=== PATIENT | male | born 1940 | race Caucasian/White ===

== ENCOUNTER 2017-09-04 14:51 | Inpatient (IN) | payer MEDICARE, OTHER ==
--- NOTE | 2017-09-04 15:23 | ED ---
General Adult HPI - General Chief complaint: Fall Stated complaint: fall/right hip pain Time Seen by Provider: 09/04/17 14:59 Source: EMS, RN notes reviewed, old records reviewed Mode of arrival: EMS Limitations: altered mental status - History of Present Illness Initial comments: This is a 77-year-old male the ER today for evaluation status post fall. Patient is fall, mechanical slip and fall with right hip pain. Patient does suffer from dementia so is a poor historian. History obtained from EMS. Per EMS patient did fall yesterday and has been in bed ever since - Related Data Home Medications Medication Instructions Recorded Confirmed Acetaminophen Tab [Tylenol Tab] 650 mg PO BID PRN 09/04/17 09/04/17 Artificial Tears-Hypromellose 1 drops RIGHT EYE Q4H 09/04/17 09/04/17 [Artificial Tear Drops] Aspirin [Adult Low Dose Aspirin EC] 81 mg PO HS 09/04/17 09/04/17 Carbidopa-Levodopa 25-100 mg 1 tab PO TID 09/04/17 09/04/17 [Sinemet 25-100] Cholecalciferol [Vitamin D3] 4,000 unit PO DAILY 09/04/17 09/04/17 Clotrimazole Cream [Lotrimin Cream] 1 applic TOPICAL HS 09/04/17 09/04/17 Cyanocobalamin (Vitamin B-12) 1,000 mcg PO HS 09/04/17 09/04/17 [Vitamin B-12] Folic Acid 0.4 mg PO HS 09/04/17 09/04/17 Insulin Detemir [Levemir] 20 unit SQ HS 09/04/17 09/04/17 Lisinopril [Prinivil] 10 mg PO DAILY 09/04/17 09/04/17 Pravastatin Sodium [Pravachol] 20 mg PO HS 09/04/17 09/04/17 metFORMIN HCL [Glucophage] 1,000 mg PO BID 09/04/17 09/04/17 predniSONE 20 mg PO HS 09/04/17 09/04/17 Allergies Allergy/AdvReac Type Severity Reaction Status Date / Time No Known Allergies Allergy Verified 09/04/17 15:24 Review of Systems ROS Statement: Those systems with pertinent positive or pertinent negative responses have been documented in the HPI. ROS Other: All systems not noted in ROS Statement are negative. Past Medical History Past Medical History: Dementia, Diabetes Mellitus Additional Past Medical History / Comment(s): metabolic encephalopathy, parkinsons, weakness, hyponatremia History of Any Multi-Drug Resistant Organisms: Unobtainable Past Surgical History: Unable to Obtain Past Psychological History: Unable to Obtain Smoking Status: Unknown if ever smoked Past Alcohol Use History: Unable to Obtain Past Drug Use History: Unable to Obtain General Exam - General Exam Comments Initial Comments: Right leg is short rotated Limitations: altered mental status General appearance: alert, in no apparent distress Head exam: Present: atraumatic, normocephalic, normal inspection Eye exam: Present: normal appearance, PERRL, EOMI. Absent: scleral icterus, conjunctival injection, periorbital swelling ENT exam: Present: normal exam, mucous membranes moist Neck exam: Present: normal inspection. Absent: tenderness, meningismus, lymphadenopathy Respiratory exam: Present: normal lung sounds bilaterally. Absent: respiratory distress, wheezes, rales, rhonchi, stridor Cardiovascular Exam: Present: regular rate, normal rhythm, normal heart sounds. Absent: systolic murmur, diastolic murmur, rubs, gallop, clicks GI/Abdominal exam: Present: soft, normal bowel sounds. Absent: distended, tenderness, guarding, rebound, rigid Extremities exam: Present: normal inspection, full ROM, normal capillary refill. Absent: tenderness, pedal edema, joint swelling, calf tenderness Back exam: Present: normal inspection Neurological exam: Present: alert, oriented X3, CN II-XII intact Psychiatric exam: Present: normal affect, normal mood Skin exam: Present: warm, dry, intact, normal color. Absent: rash Course Vital Signs 09/04/17 09/04/17 09/04/17 15:00 16:20 17:51 Temperature 97.5 F L Pulse Rate 86 89 84 Respiratory 18 18 18 Rate Blood Pressure 159/72 144/72 118/56 O2 Sat by Pulse 96 98 97 Oximetry - Reevaluation(s) Reevaluation #1: 09/04/17 18:46 Patient does have positive fracture right hip, will admit for orthopedic treatment EKG Findings - EKG Comments: EKG Findings:: EKG shows sinus rhythm rate of 89, NH 154, QRS 98, QTc 428 Medical Decision Making - Medical Decision Making 77 male the ER status post fall, positive right hip fracture. Patient will be admitted for orthopedic evaluation and treatment - Lab Data Result diagrams: 09/04/17 16:13 09/04/17 16:13 Lab Results 09/04/17 09/04/17 09/04/17 Range/Units 16:13 16:13 16:13 WBC 15.8 H (3.8-10.6) k/uL RBC 3.44 L (4.30-5.90) m/uL Hgb 10.5 L (13.0-17.5) gm/dL Hct 31.9 L (39.0-53.0) % MCV 92.7 (80.0-100.0) fL MCH 30.5 (25.0-35.0) pg MCHC 32.9 (31.0-37.0) g/dL RDW 13.3 (11.5-15.5) % Plt Count 385 (150-450) k/uL Neutrophils % 80 % Lymphocytes % 11 % Monocytes % 9 % Eosinophils % 0 % Basophils % 0 % Neutrophils # 12.6 H (1.3-7.7) k/uL Lymphocytes # 1.7 (1.0-4.8) k/uL Monocytes # 1.3 H (0-1.0) k/uL Eosinophils # 0.0 (0-0.7) k/uL Basophils # 0.0 (0-0.2) k/uL PT (9.0-12.0) sec INR (<1.2) APTT (22.0-30.0) sec Sodium 138 (137-145) mmol/L Potassium 4.2 (3.5-5.1) mmol/L Chloride 97 L (98-107) mmol/L Carbon Dioxide 26 (22-30) mmol/L Anion Gap 15 mmol/L BUN 22 H (9-20) mg/dL Creatinine 0.71 (0.66-1.25) mg/dL Est GFR (CKD-EPI)AfAm >90 (>60 ml/min/1.73 sqM) Est GFR (CKD-EPI)NonAf >90 (>60 ml/min/1.73 sqM) Glucose 196 H (74-99) mg/dL Calcium 9.0 (8.4-10.2) mg/dL Phosphorus 3.6 (2.5-4.5) mg/dL Magnesium 1.3 L (1.6-2.3) mg/dL Total Bilirubin 0.5 (0.2-1.3) mg/dL AST 16 L (17-59) U/L ALT 16 L (21-72) U/L Alkaline Phosphatase 43 (38-126) U/L Total Creatine Kinase 112 (55-170) U/L CK-MB (CK-2) 2.2 (0.0-2.4) ng/mL CK-MB (CK-2) Rel Index 2.0 Troponin I <0.012 (0.000-0.034) ng/mL Total Protein 6.8 (6.3-8.2) g/dL Albumin 3.7 (3.5-5.0) g/dL 09/04/17 Range/Units 16:13 WBC (3.8-10.6) k/uL RBC (4.30-5.90) m/uL Hgb (13.0-17.5) gm/dL Hct (39.0-53.0) % MCV (80.0-100.0) fL MCH (25.0-35.0) pg MCHC (31.0-37.0) g/dL RDW (11.5-15.5) % Plt Count (150-450) k/uL Neutrophils % % Lymphocytes % % Monocytes % % Eosinophils % % Basophils % % Neutrophils # (1.3-7.7) k/uL Lymphocytes # (1.0-4.8) k/uL Monocytes # (0-1.0) k/uL Eosinophils # (0-0.7) k/uL Basophils # (0-0.2) k/uL PT 10.3 (9.0-12.0) sec INR 1.1 (<1.2) APTT 22.7 (22.0-30.0) sec Sodium (137-145) mmol/L Potassium (3.5-5.1) mmol/L Chloride (98-107) mmol/L Carbon Dioxide (22-30) mmol/L Anion Gap mmol/L BUN (9-20) mg/dL Creatinine (0.66-1.25) mg/dL Est GFR (CKD-EPI)AfAm (>60 ml/min/1.73 sqM) Est GFR (CKD-EPI)NonAf (>60 ml/min/1.73 sqM) Glucose (74-99) mg/dL Calcium (8.4-10.2) mg/dL Phosphorus (2.5-4.5) mg/dL Magnesium (1.6-2.3) mg/dL Total Bilirubin (0.2-1.3) mg/dL AST (17-59) U/L ALT (21-72) U/L Alkaline Phosphatase (38-126) U/L Total Creatine Kinase (55-170) U/L CK-MB (CK-2) (0.0-2.4) ng/mL CK-MB (CK-2) Rel Index Troponin I (0.000-0.034) ng/mL Total Protein (6.3-8.2) g/dL Albumin (3.5-5.0) g/dL - Radiology Data Radiology results: report reviewed (X-ray shows positive icy fracture, chest x- ray negative), image reviewed Disposition Clinical Impression: Fall, Closed right hip fracture Disposition: ADMITTED IP TO THIS [facility] Condition: Fair Is patient prescribed a controlled substance at d/c from ED?: No
--- NOTE | 2017-09-04 15:24 | XR ---
EXAMINATION TYPE: XR Hip Complete RT DATE OF EXAM: 09/04/2017 CLINICAL HISTORY: Pain after fall injury. TECHNIQUE: AP and frogleg views of the right hip are obtained. COMPARISON: None. FINDINGS: Osseous structures are demineralized. There is acute comminuted intertrochanteric fracture right proximal femur with impaction of the femoral shaft component. No hip joint dislocation is seen. Vascular calcification right pelvic and groin region is noted. IMPRESSION: There is acute comminuted displaced intertrochanteric fracture right proximal femur. (Initial encounter closed type post traumatic fracture)
--- NOTE | 2017-09-04 15:25 | XR ---
EXAMINATION TYPE: XR chest 1V DATE OF EXAM: 09/04/2017 COMPARISON: NONE HISTORY: Right hip fracture, presurgical study. TECHNIQUE: Single frontal view of the chest is obtained. FINDINGS: There is chronic parenchymal change without suspicious focal air space opacity, pleural ef fusion, or pneumothorax seen. There is suspected more focal left basilar linear scarring and/or atele ctasis. Slight fullness bilateral paratracheal region could reflect thyroid goiter or prominent media stinal fat, other etiologies not excluded. The cardiac silhouette size is within normal limits. The osseous structures are demineralized. Multilevel spurring in the mid to lower thoracic spine is pres ent. IMPRESSION: Chronic changes without suspicious acute pulmonary process.
[2017-09-04] MEDS ORDERED: SODIUM CHLORIDE 0.9% 500 ML IV STA (15:58)
[2017-09-04] MEDS ORDERED: SODIUM CHLORIDE 0.9% 1,000 ML IV STA (15:58)
[2017-09-04] MEDS ORDERED: ACETAMINOPHEN IV (For NPO) 1,000 MG in EMPTY BAG 1 BAG IVPB STA (16:00)
[2017-09-04 16:24] LABS: Basophils % (A) 0 %; Eosinophils % (A) 0 %; HCT 31.9 % (39.0-53.0); HGB 10.5 gm/dL (13.0-17.5); Lymphocytes # (A) 1.7 k/uL (1.0-4.8); Lymphocytes % (A) 11 %; MCH 30.5 pg (25.0-35.0); MCHC 32.9 g/dL (31.0-37.0); MCV 92.7 fL (80.0-100.0); Mean Platelet Volume 7.5; Monocytes # (A) 1.3 k/uL (0-1.0); Monocytes % (A) 9 %; Neutrophils # (A) 12.6 k/uL (1.3-7.7); Neutrophils % (A) 80 %; Platelet Count 385 k/uL (150-450); RBC 3.44 m/uL (4.30-5.90); RDW 13.3 % (11.5-15.5); WBC 15.8 k/uL (3.8-10.6)
[2017-09-04 16:32] LABS: INR 1.1 (<1.2); Partial Thromboplastin Time 22.7 sec (22.0-30.0); Prothrombin Time 10.3 sec (9.0-12.0)
[2017-09-04 16:34] LABS: ALT 16 U/L (21-72); AST 16 U/L (17-59); Albumin 3.7 g/dL (3.5-5.0); Alkaline Phosphatase 43 U/L (38-126); Anion Gap 15 mmol/L; Blood Urea Nitrogen 22 mg/dL (9-20); Carbon Dioxide 26 mmol/L (22-30); Chloride 97 mmol/L (98-107); Glucose 196 mg/dL (74-99); Magnesium 1.3 mg/dL (1.6-2.3); Phosphorus 3.6 mg/dL (2.5-4.5); Potassium 4.2 mmol/L (3.5-5.1); Sodium 138 mmol/L (137-145); Total Bilirubin 0.5 mg/dL (0.2-1.3); Total Protein 6.8 g/dL (6.3-8.2)
[2017-09-04 16:49] LABS: Creatine Kinase 112 U/L (55-170)
[2017-09-04 17:01] LABS: Creatine Kinase MB 2.2 ng/mL (0.0-2.4); Troponin I <0.012 ng/mL (0.000-0.034)
[2017-09-04 18:29] LABS: Appearance,Urine Clear (Clear); Bilirubin,Urine Negative (Negative); Blood,Urine Negative (Negative); Color,Urine Yellow; Glucose,Urine (UA) Negative (Negative); Ketones,Urine Negative (Negative); Leukocyte Esterase,Urine Negative (Negative); Nitrite,Urine Negative (Negative); PH, Urine 5.5 (5.0-8.0); Protein,Urine Negative (Negative); Specific Gravity,Urine 1.022 (1.001-1.035); Urobilinogen,Urine <2.0 mg/dL (<2.0)
[2017-09-04 20:55] LABS: Glucose,Whole Blood 168 mg/dL (75-99)
[2017-09-04] MEDS ORDERED: INSULIN DETEMIR 100 UNIT/ML 10 ML VIAL SQ SCH (22:00)
[2017-09-04] MEDS: INSULIN ASPART 100 UNIT/ML 1 ML 10 ML VIAL SQ SCH (22:17)
[2017-09-04] MEDS: PRAVASTATIN SODIUM 20 MG TAB PO SCH (22:21)
[2017-09-04] MEDS: predniSONE 20 MG TAB PO SCH (22:21)
[2017-09-04] MEDS: CARBIDOPA-LEVODOPA 25-100 MG 1 EACH TAB PO SCH (22:21)
[2017-09-04] MEDS ORDERED: MORPHINE SULFATE 4 MG/ML SYRINGE IVP PRN (23:43)
[2017-09-04] MEDS ORDERED: Magnesium Replacement Protocol 1 EACH MISC MISCELLANE PRN (23:43)
[2017-09-05] MEDS: MAGNESIUM SULFATE-D5W PMX 1 GM in DEXTROSE/WATER 1 100ML.BAG IVPB SCH ×3 (01:06→03:24)
[2017-09-05] MEDS: ceFAZolin IN SWFI 2 GM/20 ML SYRINGE IVP SCH ×4 (01:34→23:39)
[2017-09-05] MEDS: TOBRAMYCIN 0.3% OPHTH DROPS 5 ML BTL RIGHT EYE SCH ×4 (01:34→23:39)
--- NOTE | 2017-09-05 06:22 | CONS ---
CONSULTATION The reason for consultation advice regarding diabetes and other medical issues requested by Orthopedic Surgery. HISTORY OF PRESENT ILLNESS: This 77-year-old gentleman with a past medical history of dementia, diabetes mellitus, history of metabolic encephalopathy, Parkinson's, weakness, hyponatremia, being followed by Dr. Roberts in the outpatient setting is apparently living in [facility] for quite some time. The patient had significant dementia. Patient is nonverbal. Patient also had Parkinson's also. Patient is able to ambulate according the history. I was unable to obtain a detailed history from the patient. Most of the history is taken from discussion of staff and review of the charts at this time. Apparently the patient fell 2 days ago and the patient was noted to have right hip fracture and the patient was sent to [facility] Emergency Room and was admitted for further evaluation and treatment. Patient is also noted to have some right eye swelling and some discharge also. There is no history of any fever or rigors or chills at this time. 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 MEDICATIONS: Medications prior to admission, home medications are: 1. Artificial Tears-Hypromellose 1 q.4 p.r.n. 2. Sinemet 25/100 one p.o. t.i.d. 3. Glucophage 1000 mg p.o. b.i.d. 4. Tylenol 650 b.i.d. p.r.n. 5. Vitamin B12, 1000 mcg p.o. at bedtime. 6. Vitamin D3, 4000 daily. 7. Prednisone 20 mg at bedtime. 8. Pravachol 20 mg p.o. at bedtime. 9. Prinivil 10 mg p.o. daily. 10.Levemir 20 units subcutaneous at bedtime. 11.Folic acid 0.4 mg at bedtime. 12.Lotrimin 1 application topically at bedtime. 13.Aspirin 81 mg p.o. daily. ALLERGIES: Allergies are none. Family history, social history, review of systems could not be taken because of the patient's mental status. PHYSICAL EXAM: Patient is conscious, but nonverbal. Pulse is 67, blood pressure 124/83, respiration 18, temperature 97.9, pulse ox 97% on room air. HEENT: Conjunctivae normal. Oral mucosa moist. Neck is no jugular venous distention. No carotid bruit. No lymph node enlargement. Right eye swelling and some discharge from the right eye also present. CARDIOVASCULAR: S1 and S2 muffled. No S3, no S4. RESPIRATORY: Breath sounds diminished at the bases. A few scattered rhonchi. No crackles. ABDOMEN: Soft, nontender. No mass palpable. LEGS: Status post right hip fracture. NERVOUS SYSTEM: Higher functions as mentioned earlier. There were some contractures and some increased tone and increased tremors also present. LYMPHATICS: No lymphadenopathy of the neck, axillae or groin. SKIN: No ulcer, rash or bleeding. JOINTS: As mentioned earlier. LABS: WBC 15.8, hemoglobin 10.5. Sodium 138, potassium 4.2. ASSESSMENT: 1. Status post right hip swelling. 2. Increased WBC. 3. Right periorbital swelling for cellulitis. 4. Increased random blood sugar and diabetes type 2. 5. Dementia. 6. Hypomagnesemia. 7. History of collapsed lung. 8. History of metabolic encephalopathy. 9. History of hyponatremia. 10.History of hepatitis. 11.History of cardiac catheterization and no stents. 12.NO CODE, NO CPR, NO VENT. RECOMMENDATIONS AND DISCUSSION: In this 77-year-old gentleman who presented with multiple complex medical issues , we will monitor the patient closely. Continue the current medication. Continue symptomatic treatment. I would recommend resume the home medications and DVT prophylaxis. I would also recommend DVT prophylaxis and Tylenol, pain medications, IV morphine carefully. Otherwise monitor blood sugars closely. Lovenox has been initiated from the ER. I would also recommend proton pump inhibitors. The appears to be excellent and I would clear the patient for surgery with some minimal risk and the overall prognosis guarded because of multiple complex medical issues and I would also recommend ophthalmology evaluation, empiric antibiotics and I would also recommend a set of cultures as well. See orders for further details. Further recommendations to follow. MMODL / IJN: [id number] / MTDD
[2017-09-05 07:36] LABS: Glucose,Whole Blood 193 mg/dL (75-99)
[2017-09-05] MEDS ORDERED: LISINOPRIL 10 MG TAB PO SCH (09:00)
[2017-09-05] MEDS ORDERED: metFORMIN 500 MG TAB PO SCH (09:00)
[2017-09-05] MEDS: CARBIDOPA-LEVODOPA 25-100 MG 1 EACH TAB PO SCH ×3 (09:06→22:31)
[2017-09-05] MEDS: ENOXAPARIN 40 MG/0.4 ML SYRINGE SQ SCH (09:06)
[2017-09-05] MEDS: INSULIN ASPART 100 UNIT/ML 1 ML 10 ML VIAL SQ SCH ×5 (09:06→22:30)
[2017-09-05] MEDS: PANTOPRAZOLE 40 MG TABLET PO SCH (09:06)
[2017-09-05] MEDS: ACETAMINOPHEN TAB 325 MG TAB PO PRN ×2 (09:15→15:44)
--- NOTE | 2017-09-05 09:21 | P.HPOR ---
History of Present Illness H&P Date: 09/05/17 This is a 77-year-old male who is admitted for right hip fracture. Patient's past medical history significant for dementia and diabetes. Patient lives in a fdc and is a poor historian. Patient's family is present in the room and state that the patient had a fall on the midnight shift between 09/03/2017 and 09/04/2017. Family states that the patient had another fall last week as well. Family states that when the nursing staff noticed that the patient's right hip was swollen and the right leg was turned out they sent the patient to the emergency room for evaluation. Patient's family state that the patient does typically does not ambulate and has vision impairment. Patient's family also state that the patient does not communicate. Patient denies any fever/ chills, numbness, weakness, tingling, abdominal pain, shortness of breath or chest pain. Review of Systems See HPI. Past Medical History Past Medical History: Dementia, Diabetes Mellitus Additional Past Medical History / Comment(s): collapsed lung, metabolic encephalopathy, parkinsons, weakness, hyponatremia, Patient's reports that the patient has a history of hepatitis related to a blood transfusion. History of Any Multi-Drug Resistant Organisms: Unobtainable Past Surgical History: No Surgical Hx Reported, Heart Catheterization Additional Past Surgical History / Comment(s): Heart cath without stent Past Psychological History: Unable to Obtain Smoking Status: Unknown if ever smoked Past Alcohol Use History: Unable to Obtain Past Drug Use History: Unable to Obtain - Past Family History Father Additional Family Medical History / Comment(s): Parkinsons Mother Family Medical History: AICD/Pacemaker Sister(s) Family Medical History: Cancer Brother(s) Family Medical History: Cancer, Diabetes Mellitus Medications and Allergies Home Medications Medication Instructions Recorded Confirmed Type Acetaminophen Tab [Tylenol Tab] 650 mg PO BID PRN 09/04/17 09/04/17 History Artificial Tears-Hypromellose 1 drops RIGHT EYE Q4H 09/04/17 09/04/17 History [Artificial Tear Drops] Aspirin [Adult Low Dose Aspirin EC] 81 mg PO HS 09/04/17 09/04/17 History Carbidopa-Levodopa 25-100 mg 1 tab PO TID 09/04/17 09/04/17 History [Sinemet 25-100] Cholecalciferol [Vitamin D3] 4,000 unit PO DAILY 09/04/17 09/04/17 History Clotrimazole Cream [Lotrimin Cream] 1 applic TOPICAL HS 09/04/17 09/04/17 History Cyanocobalamin (Vitamin B-12) 1,000 mcg PO HS 09/04/17 09/04/17 History [Vitamin B-12] Folic Acid 0.4 mg PO HS 09/04/17 09/04/17 History Insulin Detemir [Levemir] 20 unit SQ HS 09/04/17 09/04/17 History Lisinopril [Prinivil] 10 mg PO DAILY 09/04/17 09/04/17 History Pravastatin Sodium [Pravachol] 20 mg PO HS 09/04/17 09/04/17 History metFORMIN HCL [Glucophage] 1,000 mg PO BID 09/04/17 09/04/17 History predniSONE 20 mg PO HS 09/04/17 09/04/17 History Allergies Allergy/AdvReac Type Severity Reaction Status Date / Time No Known Allergies Allergy Verified 09/04/17 15:24 Physical Examination On exam patient is lying comfortably in bed in no acute distress. Patient is sleeping during exam. There is mild swelling over the right hip. The right lower extremity is warm and well perfused. Dorsalis pedis pulses 2+. Neurovascular status and circulatory status are intact. Results X-rays of the right hip show comminuted intertrochanteric fracture of the right femur. - Labs Labs: Abnormal Lab Results - Last 24 Hours (Table) 09/04/17 09/04/17 09/04/17 Range/Units 16:13 16:13 20:52 WBC 15.8 H (3.8-10.6) k/uL RBC 3.44 L (4.30-5.90) m/uL Hgb 10.5 L (13.0-17.5) gm/dL Hct 31.9 L (39.0-53.0) % Neutrophils # 12.6 H (1.3-7.7) k/uL Monocytes # 1.3 H (0-1.0) k/uL Chloride 97 L (98-107) mmol/L BUN 22 H (9-20) mg/dL Glucose 196 H (74-99) mg/dL POC Glucose (mg/dL) 168 H (75-99) mg/dL Magnesium 1.3 L (1.6-2.3) mg/dL AST 16 L (17-59) U/L ALT 16 L (21-72) U/L 09/05/17 Range/Units 07:34 WBC (3.8-10.6) k/uL RBC (4.30-5.90) m/uL Hgb (13.0-17.5) gm/dL Hct (39.0-53.0) % Neutrophils # (1.3-7.7) k/uL Monocytes # (0-1.0) k/uL Chloride (98-107) mmol/L BUN (9-20) mg/dL Glucose (74-99) mg/dL POC Glucose (mg/dL) 193 H (75-99) mg/dL Magnesium (1.6-2.3) mg/dL AST (17-59) U/L ALT (21-72) U/L Microbiology - Last 24 Hours (Table) 09/04/17 18:20 Urine Culture - Preliminary Urine,Catheterized H & H 09/04/17 Range/Units 16:13 Hgb 10.5 L (13.0-17.5) gm/dL Hct 31.9 L (39.0-53.0) % Coagulation 09/04/17 Range/Units 16:13 INR 1.1 (<1.2) Result Diagrams: 09/04/17 16:13 09/04/17 16:13 Assessment and Plan (1) Intertrochanteric fracture of right femur Current Visit: Yes Status: Acute Code(s): S72.141A - DISPLACED INTERTROCHANTERIC FRACTURE OF RIGHT FEMUR, INIT SNOMED Code(s): 434099625 (2) Closed right hip fracture Current Visit: Yes Status: Acute Code(s): S72.001A - FRACTURE OF UNSP PART OF NECK OF RIGHT FEMUR, INIT SNOMED Code(s): 610326293 (3) Fall Current Visit: Yes Status: Acute Code(s): W19.XXXA - UNSPECIFIED FALL, INITIAL ENCOUNTER SNOMED Code(s): 9756038 Plan: 1. Patient is to be NPO after midnight. 2. Nonweightbearing to right lower extremity. 3. Continue pain control. 4. Close reduction an intramedullary hip screw fixation of the right hip is scheduled for 09/06/2017 pending medical clearance and consent.
[2017-09-05 11:10] LABS: Glucose,Whole Blood 251 mg/dL (75-99)
[2017-09-05 11:19] LABS: Hepatitis A Antibody IgM Non-Reactive (Non-Reactive); Hepatitis B Core IgM Non-Reactive (Non-Reactive)
[2017-09-05 11:52] VITALS: BMI 28.7
[2017-09-05 17:14] LABS: Glucose,Whole Blood 196 mg/dL (75-99)
--- NOTE | 2017-09-05 17:27 | P.PN ---
Subjective 77-year-old admitted for right hip fracture will undergo surgical intervention tomorrow. Patient does have dementia and evidences medicine hypertension patient lisinopril will be held as I'm expecting perioperative hypotension. Patient's metformin will be held as well will continue sliding scale insulin Review of systems unable to obtain Objective - Vital Signs Vital signs: Vital Signs Temp 98 F 09/05/17 14:55 Pulse 94 09/05/17 14:55 Resp 16 09/05/17 14:55 BP 115/59 09/05/17 14:55 Pulse Ox 94 L 09/05/17 14:55 Intake & Output 09/04/17 09/05/17 09/05/17 18:59 06:59 18:59 Intake Total 1100 500 Output Total 1500 325 Balance -400 175 Weight 90.718 kg 90.718 kg Intake: Intake, IV Titration 1100 Amount Sodium Chloride 0.9% 1, 300 000 ml @ 100 mls/hr IV . Q10H STA Rx#:[id number] ceFAZolin 2 gm In Sodium 800 Chloride 0.9% 50 ml @ 100 mls/hr IVPB Q8HR WILLIE Rx# :[id number] Oral 500 Output: Urine 1500 325 Uretheral (Marsh) 1400 325 Other: Voiding Method Indwelling Catheter Indwelling Catheter - Exam PHYSICAL EXAMINATION: GENERAL: The patient is alert and unable to assess as patient is nonverbal, not in any acute distress. Well developed, well nourished. HEENT: Pupils are round and equally reacting to light. EOMI. No scleral icterus. No conjunctival pallor. Normocephalic, atraumatic. No pharyngeal erythema. No thyromegaly. CARDIOVASCULAR: S1 and S2 present. No murmurs, rubs, or gallops. PULMONARY: Chest is clear to auscultation, no wheezing or crackles. ABDOMEN: Soft, nontender, nondistended, normoactive bowel sounds. No palpable organomegaly. MUSCULOSKELETAL: Deferred to orthopedic surgery EXTREMITIES: No cyanosis, clubbing, or pedal edema. NEUROLOGICAL: Gross neurological examination did not reveal any focal deficits. SKIN: No rashes. - Labs CBC & Chem 7: 09/04/17 16:13 09/04/17 16:13 Labs: Abnormal Lab Results - Last 24 Hours (Table) 09/04/17 09/05/17 09/05/17 Range/Units 20:52 07:34 11:07 POC Glucose (mg/dL) 168 H 193 H 251 H (75-99) mg/dL 09/05/17 Range/Units 17:12 POC Glucose (mg/dL) 196 H (75-99) mg/dL Microbiology - Last 24 Hours (Table) 09/04/17 23:55 Gram Stain - Preliminary Eye - Right Eye Culture - Preliminary 09/04/17 18:20 Urine Culture - Preliminary Urine,Catheterized Assessment and Plan Plan: -Right hip fracture: Patient will undergo surgery tomorrow. -Hypertension hold off lisinopril because of above-mentioned reasons next and- type 2 diabetes mellitus we'll cut down the Lantus to 10 units and the patient will be started on sliding scale insulin and metformin will be held -History of dementia. Etiology is a dementia is unknown -Hypomagnesemia
[2017-09-05] MEDS ORDERED: RX INFO: IV CONTRAST WAS GIVEN 1 EACH MISC MISCELLANE PRN (17:36)
[2017-09-05 20:14] LABS: Glucose,Whole Blood 228 mg/dL (75-99)
[2017-09-05] MEDS: INSULIN DETEMIR 100 UNIT/ML 10 ML VIAL SQ SCH (22:30)
[2017-09-05] MEDS: FOLIC ACID 1 MG TAB PO SCH (22:30)
[2017-09-05] MEDS: predniSONE 20 MG TAB PO SCH (22:31)
[2017-09-05] MEDS: PRAVASTATIN SODIUM 20 MG TAB PO SCH (22:31)
[2017-09-05] MEDS: CYANOCOBALAMIN 500 MCG TAB PO SCH (22:32)
[2017-09-05 23:06] LABS: Hemoglobin A1C 6.8 % (4.0-6.0)
[2017-09-06 07:25] LABS: Glucose,Whole Blood 235 mg/dL (75-99)
[2017-09-06 07:58] LABS: Basophils % (A) 0 %; Eosinophils % (A) 0 %; HCT 26.2 % (39.0-53.0); Lymphocytes # (A) 1.4 k/uL (1.0-4.8); Lymphocytes % (A) 11 %; MCH 30.3 pg (25.0-35.0); MCHC 32.3 g/dL (31.0-37.0); MCV 93.7 fL (80.0-100.0); Mean Platelet Volume 6.9; Monocytes # (A) 0.7 k/uL (0-1.0); Monocytes % (A) 6 %; Neutrophils # (A) 10.3 k/uL (1.3-7.7); Neutrophils % (A) 83 %; Platelet Count 306 k/uL (150-450); RDW 13.4 % (11.5-15.5); WBC 12.5 k/uL (3.8-10.6)
[2017-09-06 08:02] LABS: HGB 8.5 gm/dL (13.0-17.5)
[2017-09-06 08:03] LABS: Anion Gap 9 mmol/L; Blood Urea Nitrogen 19 mg/dL (9-20); Calcium 8.5 mg/dL (8.4-10.2); Carbon Dioxide 24 mmol/L (22-30); Chloride 104 mmol/L (98-107); Glucose 219 mg/dL (74-99); Potassium 4.7 mmol/L (3.5-5.1); Sodium 137 mmol/L (137-145)
[2017-09-06] MEDS: ceFAZolin IN SWFI 2 GM/20 ML SYRINGE IVP SCH ×2 (09:09→15:13)
[2017-09-06] MEDS: TOBRAMYCIN 0.3% OPHTH DROPS 5 ML BTL RIGHT EYE SCH ×2 (09:14→15:07)
[2017-09-06] MEDS ORDERED: MAGNESIUM HYDROXIDE 2,400 MG/10 ML CUP PO PRN (09:37)
[2017-09-06] MEDS ORDERED: NALOXONE 0.4 MG/ML 1 ML VIAL IV PRN (09:37)
[2017-09-06] MEDS ORDERED: ONDANSETRON 4 MG/2 ML VIAL IVP PRN (09:37)
[2017-09-06] MEDS ORDERED: IV FLUID CONTINUATION 1,000 ML IV ONE (10:07)
[2017-09-06] MEDS ORDERED: ceFAZolin IN SWFI 2 GM/20 ML SYRINGE IVP ONE (10:13)
[2017-09-06 10:15] LABS: Glucose,Whole Blood 211 mg/dL (75-99)
--- NOTE | 2017-09-06 10:17 | P.PN ---
Progress Note - Text Discussion with the patients concerning changing NO CODE status to FULL CODE for the immediate halima-op period was undertaken with the . She understands and is accepting of this.
[2017-09-06] MEDS ORDERED: INSULIN ASPART 100 UNIT/ML 1 ML 10 ML VIAL SQ ONE (10:21)
[2017-09-06] MEDS ORDERED: KETAMINE 10 MG/ML 20 ML VIAL ONE (10:25)
[2017-09-06] MEDS ORDERED: MIDAZOLAM 2 MG/2 ML VIAL ONE (10:25)
[2017-09-06] MEDS ORDERED: PROPOFOL 10 MG/ML 20 ML VIAL IV ONE (10:25)
[2017-09-06] MEDS ORDERED: fentaNYL (PF) 50 MCG/ML 2 ML AMP ONE (10:25)
[2017-09-06] MEDS ORDERED: SODIUM CHLORIDE 0.9% 100 ML with ceFAZolin 2,000 MG IV ONE ×2 (10:40)
[2017-09-06] MEDS ORDERED: LACTATED RINGERS 1,000 ML IV ONE (10:47)
[2017-09-06] MEDS: PANTOPRAZOLE 40 MG TABLET PO SCH (11:03)
[2017-09-06] MEDS: INSULIN ASPART 100 UNIT/ML 1 ML 10 ML VIAL SQ SCH ×4 (11:03→21:13)
[2017-09-06] MEDS: CARBIDOPA-LEVODOPA 25-100 MG 1 EACH TAB PO SCH ×3 (11:04→21:10)
[2017-09-06] MEDS ORDERED: ceFAZolin 2,000 MG in SODIUM CHLORIDE 0.9% 1,000 ML IRRIGATION ONE (11:05)
--- NOTE | 2017-09-06 11:11 | CONS ---
CONSULTATION DATE OF CONSULT: 09/05/2017. REASON FOR CONSULT: Discharge right eye. The patient was found lying comfortably in his bed. The patient has severe dementia and is unable to answer questions at all. He is nonverbal. The questions were answered by his , Chanda. On history, the patient reported to have some discharge from his right eye starting a little over one year ago. On an outpatient basis by his primary care physician, he was started on erythromycin ointment. He has had several different antibiotic ointments and several drops regimens with no resolution of the swelling of his right eyelid and discharge. This patient was subsequently moved into [facility]. He is currently admitted to the hospital for a fall with a broken hip. He is to have surgical repair of his hip on September 06. On examination, I noted that the patient's right eye was protruding a little bit as well as pointing upwards. I asked the patient's if she had noted that before and she said yes, but is unsure of the length of time. She thinks approximately 6 months ago it started to turn and his eye started to come forward over the last 3 months the eye has protruded more. It turned upwards to the point where at times he cannot even see the iris as it is buried underneath the right upper eyelid. The patient's states that she has asked at the [facility] several times for evaluation of that without any success. On physical examination, I am unable to gather intra-ocular pressures or visual acuities due to the patient's nonverbal status. It appears as though the patient was able to follow my penlight tracking horizontally in all quadrants, doing quite well. When getting on his bed and trying to have him draw his eyes downwards, I do not believe that the right eye is able to infraduct. In primary gaze, he would have greater than a 20 diopter vertical deviation of the right eye. Intraocular pressures were unable to be gathered appropriately due to the patient's severe squeezing of his eyes closed. On tactile palpation, the pressures appeared to be normal. Pupil examination was difficult due to having to hold the patient's eyelid open while trying to get pupil examination and his constant moving of his eyes [id number]. It appears as though the pupils were reactive and equal. Penlight examination reveals puncta patent in both eyes, but there was discharge noted along the eyelashes as well as on the ocular structures themselves. Patient is currently using Tobrex. The conjunctiva right eye had chemosis with some injection. The left eye was pinguecula. Corneas had arcus both eyes. Anterior chambers were formed. Iris was flat and there were cataracts noted in both eyes. Under lids, under the right eye, the patient was noted to have swelling of the eyelids, which cross the orbital rim down onto his cheek and extended into his temporal region. Impressions for the patient are: 1. Strabismus, right eye, with a vertical deviation. 2. Cataract. 3. Chemosis. 4. Swollen eyelid. PLAN: 1. A card was given to the patient's . She is instructed to call my office if there is any new changes to his ocular symptoms or structures. 2. ENT consult was made and I spoke with Dr. Bundy to review the case. He asked me to gather a CT of the sinus as there is a concern that there may be either sinus or orbital tumor. 3. I spoke with Dr. Keith for to gather the CAT scan with sedation as the patient is nonverbal and is unable to follow instructions appropriately. To gather satisfactory scan he needs to be quiet and still. 4. I spoke with Dr. Hinton on the morning of September 06, who is the anesthesiologist to see about coordinating CAT scan with anesthesia just after the patient's hip fracture repair today and I also spoke with surgical scheduling to see if we could move the patient from his procedure to CAT scan while still under sedation and they were all in agreement. 5. The patient will be re-examined on 09/06/2017 in the afternoon with a to measure possible proptosis. Further recommendations will be coming based on testing and Dr. Bundy's evaluation. MMODL / IJN: [id number] /
--- NOTE | 2017-09-06 11:22 | P.OP ---
Date of Procedure: 09/06/17 Preoperative Diagnosis: Four-part intertrochanteric fracture right hip Postoperative Diagnosis: Four-part intertrochanteric fracture right hip Procedure(s) Performed: Close reduction and intramedullary hip screw fixation of the right hip Implants: [employer] intertan nail 125, 11.5 mm x 18 cm. [employer] Intertan integrated interlocking lag screw, 105 mm lag screw, 100 mm compression screw. [employer] L-P screw, 5.0 mm x 32.5 mm. Anesthesia: spinal Surgeon: Mike Brambila Roaster Supervisor #1: Danay Leon Estimated Blood Loss (ml): 100 Pathology: none sent Condition: stable Disposition: PACU Indications for Procedure: This is a 77-year-old gentleman that fell at the assisted living facility. He is brought to the emergency room and found to have a 4 part intertrochanteric fracture of his right hip. After discussing the surgical nonsurgical treatment options with his family at length I've recommended a close reduction and intramedullary hip screw fixation of his right hip. Informed consent was obtained. Operative Findings: The operative findings are consistent with a four-part intertrochanteric fracture of the right hip Description of Procedure: The patient was seen in the preoperative area, consent was reviewed, and the operative site was marked with a skin marker. The patient was brought to the operating room and placed on the operating room table. Anesthesia was administered by the anesthesia department. 2 g of Ancef were administered intravenously. The patient was placed supine on the fracture table with the fractured extremity in traction boot. His other extremity was placed in a well leg george and his bony prominences were padded. A universal timeout was then performed which confirmed the patient's name, surgical site, ALLERGIES, and consent. Fracture reduction was performed with traction and adduction maneuver which was confirmed with fluoroscopy. After reduction was performed, his extremity was then prepped and draped in the usual sterile fashion. Utilizing fluoroscopy to identify the tip of the greater trochanter, a 3 cm incision was made just proximal to the greater trochanter. Utilizing a curved awl, the starting hole was created at the tip of the greater trochanter and centralized in the AP plane. These locations were confirmed by fluoroscopy. Guidewire was then inserted down the medullary canal. Sequentially reaming of the femur was performed to 13 mm distally and 17 mm proximally. After reaming, appropriate size nail was inserted over the guidewire. The nail was inserted to the appropriate depth and the guidewire was removed. The lag screw targeting device was placed in the jig and a small skin incision was made and the targeting guide was placed down to bone. Utilizing the distally threaded guidewire, the guidewire was placed in the appropriate position in the femoral head, both anterior, posterior and mediolateral. Next, the drill for the second screw was then placed through the guide and drilled to the appropriate depth. The guidewire was measured and the appropriate depth was then reamed. The final size screw was placed to the appropriate depth. Traction was released and the fracture site was compressed with the aid of the second screw. The proximal drill guide was then removed and the distal drill guide was then inserted in the jig. Skin incision was made down to bone and the distal drill guide was then placed. Distal hole was then drilled and measured to the appropriate depth. Distal screw was then placed. The entire jig was then removed and final fluoroscopic x-rays were obtained. The wounds were then irrigated copiously with saline solution. Fascia was closed with 0-Vicryl. Subcutaneous tissues were closed with 2-0 Vicryl and the skin was closed with maryuri. Sterile dressings were applied. The patient was transported to the recovery room in stable condition. The customer marketing assistant MG Olvera was required due to complexity of the surgery and the need for skilled surgical aides teacher.
--- NOTE | 2017-09-06 12:18 | FL ---
EXAMINATION TYPE: FL guidance operating room, XR Hip Complete RT DATE OF EXAM: 09/06/2017 CLINICAL HISTORY: Right hip fracture. TECHNIQUE: Fluoroscopy. Limited intraoperative views right hip. COMPARISON: Right hip x-ray from 2 days ago. FINDINGS: Fluoroscopic guidance was provided during open reduction internal fixation procedure perfo rmed by Dr. Brambila. A total of 59 seconds of fluoroscopic time was utilized during the procedure a nd 2 spot fluoroscopic intraoperative images are acquired. Images acquired show placement of intramedullary grupo with 2 femoral neck fixating screws in distal tr ansverse fixating screws through intertrochanteric fracture right proximal femur. Improved alignment is seen after reduction and fixation. IMPRESSION: As Above.
[2017-09-06 12:26] LABS: Glucose,Whole Blood 149 mg/dL (75-99)
--- NOTE | 2017-09-06 13:13 | XR ---
EXAMINATION TYPE: XR Hip Limited RT DATE OF EXAM: 09/06/2017 CLINICAL HISTORY: Right hip pain and osteoarthritis. TECHNIQUE: Single AP portable view of right hip is obtained immediately postoperatively. COMPARISON: None. FINDINGS: Metallic hardware from right hip subtle medullary grupo and intramedullary grupo with single tr anscortical proximal right femoral diaphyseal screw and vertical skin maryuri are seen and appears sa tisfactory in alignment and position. The lesser trochanter remains displaced. There is evidence of r ecent surgery with subcutaneous gas noted laterally. IMPRESSION: Metallic hardware from right hip intramedullary fixation is satisfactory in position alth ough the lesser trochanter remains displaced.
[2017-09-06] MEDS: SODIUM CHLORIDE 0.9% 1,000 ML IV SCH (13:30)
--- NOTE | 2017-09-06 15:05 | CT ---
EXAMINATION TYPE: CT sinus wo/w con DATE OF EXAM: 09/06/2017 COMPARISON: NONE HISTORY: Chronic sinusitis CT DLP: 1291 mGycm CONTRAST: 100 ml mL of Isovue 300 The paranasal sinuses are examined in the axial plane at 2 mm thick sections. Reconstructed images i n the coronal plane were obtained. There is dental amalgam scatter artifact The maxillary sinuses are clear. There is mild mucosal thickening within ethmoid air cells. The sph enoid sinuses are clear. The frontal sinuses are clear. The septum is evaluated. There is septal deviation to the right. A right septal spur is in the midpo rtion.. Small bilateral katherine bullosa are present. The ostiomeatal units are patent. There appear to be prior uncinectomies. IMPRESSIONS: 1. Mild mucosal thickening within ethmoid air cells. 2. Right septal spurring and deviation
--- NOTE | 2017-09-06 15:30 | P.PN ---
Subjective Progress Note Date: 09/06/17 Progress note being dictated for Dr. Waddell. Interval history: This is a 77-year-old admitted for right hip fracture will undergo surgical intervention tomorrow. Patient does have dementia and evidences medicine hypertension patient lisinopril will be held as I'm expecting perioperative hypotension. Patient's metformin will be held as well will continue sliding scale insulin Review of systems unable to obtain 09/06/2017 just returning from surgery, tolerated procedure well. Pain currently controlled. Family at bedside. Objective - Vital Signs Vital signs: Vital Signs Temp 97.6 F 09/06/17 13:24 Pulse 99 09/06/17 14:30 Resp 18 09/06/17 13:24 BP 146/100 09/06/17 14:30 Pulse Ox 98 09/06/17 14:30 Intake & Output 09/05/17 09/06/17 09/06/17 18:59 06:59 18:59 Intake Total 524 231 8829 Output Total 325 675 Balance 908 648 9093 Weight 90.718 kg Intake: IV 1611 Sodium Chloride 0.9% 1, 260 000 ml @ 65 mls/hr IV . [id number] WILLIE Rx#:[id number] Intake, IV Titration 800 Amount Sodium Chloride 0.9% 1, 800 000 ml @ 100 mls/hr IV . Q10H STA Rx#:[id number] Oral 500 400 Output: Urine 325 575 Uretheral (Marsh) 325 Estimated Blood Loss 100 Other: Voiding Method Indwelling Catheter Indwelling Catheter Indwelling Catheter # Voids 2 - Exam GENERAL: The patient is alert and unable to assess as patient is nonverbal, not in any acute distress. Well developed, well nourished. HEENT: Pupils are round and equally reacting to light. EOMI. No scleral icterus. No conjunctival pallor. Normocephalic, atraumatic. No pharyngeal erythema. No thyromegaly. CARDIOVASCULAR: S1 and S2 present. No murmurs, rubs, or gallops. PULMONARY: Chest is clear to auscultation, no wheezing or crackles. ABDOMEN: Soft, nontender, nondistended, normoactive bowel sounds. No palpable organomegaly. MUSCULOSKELETAL: Deferred to orthopedic surgery EXTREMITIES: No cyanosis, clubbing, or pedal edema. NEUROLOGICAL: Gross neurological examination did not reveal any focal deficits. SKIN: No rashes. - Labs CBC & Chem 7: 09/06/17 07:25 09/06/17 07:25 Labs: Abnormal Lab Results - Last 24 Hours (Table) 09/04/17 09/05/17 09/05/17 Range/Units 16:13 17:12 20:10 WBC (3.8-10.6) k/uL RBC (4.30-5.90) m/uL Hgb (13.0-17.5) gm/dL Hct (39.0-53.0) % Neutrophils # (1.3-7.7) k/uL Glucose (74-99) mg/dL POC Glucose (mg/dL) 196 H 228 H (75-99) mg/dL Hemoglobin A1c 6.8 H (4.0-6.0) % 09/06/17 09/06/17 09/06/17 Range/Units 07:17 07:25 07:25 WBC 12.5 H (3.8-10.6) k/uL RBC 2.80 L (4.30-5.90) m/uL Hgb 8.5 L D (13.0-17.5) gm/dL Hct 26.2 L (39.0-53.0) % Neutrophils # 10.3 H (1.3-7.7) k/uL Glucose 219 H (74-99) mg/dL POC Glucose (mg/dL) 235 H (75-99) mg/dL Hemoglobin A1c (4.0-6.0) % 09/06/17 09/06/17 Range/Units 10:11 12:24 WBC (3.8-10.6) k/uL RBC (4.30-5.90) m/uL Hgb (13.0-17.5) gm/dL Hct (39.0-53.0) % Neutrophils # (1.3-7.7) k/uL Glucose (74-99) mg/dL POC Glucose (mg/dL) 211 H 149 H (75-99) mg/dL Hemoglobin A1c (4.0-6.0) % Microbiology - Last 24 Hours (Table) 09/04/17 23:55 Gram Stain - Preliminary Eye - Right Eye Culture - Preliminary Proteus Species 09/04/17 18:20 Urine Culture - Final Urine,Catheterized 09/05/17 00:48 Blood Culture - Preliminary Blood No Growth after 24 hours Assessment and Plan Assessment: -Right hip fracture, status post close reduction and intramedullary hip screw fixation of right hip -Hypertension hold off lisinopril because of above-mentioned reasons -History of dementia. Etiology is a dementia is unknown, history of prior stroke -Hypomagnesemia -Postop anemia Plan: Continue on current medication regime ,monitoring and symptomatic treatment. Pain management. Family at bedside, updated on plan of care. Aggressive pulmonary toileting. Close monitoring of Accu-Cheks, electrolytes, hemoglobin with repeat labs ordered for a.m. Further recommendations to follow. The impression and plan of care has been dictated as directed. : I performed a history and examination of this patient, discussed the same with the dictator. I agree with the dictator's note ,documented as a scribe. Any additional findings or plans will be noted.
[2017-09-06] MEDS ORDERED: ceFAZolin IN SWFI 2 GM/20 ML SYRINGE IVP SCH (16:00)
[2017-09-06] MEDS: ENOXAPARIN 40 MG/0.4 ML SYRINGE SQ SCH (16:36)
[2017-09-06] MEDS: ARTIFICIAL TEARS-HYPROMELLOSE DROPS 15 ML BTL RIGHT EYE SCH ×2 (16:53→21:10)
[2017-09-06 17:29] LABS: Glucose,Whole Blood 204 mg/dL (75-99)
[2017-09-06 20:57] LABS: Glucose,Whole Blood 206 mg/dL (75-99)
[2017-09-06] MEDS: CLOTRIMAZOLE 1% CREAM 15 GM TUBE TOPICAL SCH (21:10)
[2017-09-06] MEDS: CYANOCOBALAMIN 500 MCG TAB PO SCH (21:10)
[2017-09-06] MEDS: FOLIC ACID 1 MG TAB PO SCH (21:10)
[2017-09-06] MEDS: PRAVASTATIN SODIUM 20 MG TAB PO SCH (21:11)
[2017-09-06] MEDS: predniSONE 20 MG TAB PO SCH (21:11)
[2017-09-06] MEDS: SENNOSIDES-DOCUSATE SODIUM 1 EACH TAB PO SCH (21:13)
[2017-09-06] MEDS: INSULIN DETEMIR 100 UNIT/ML 10 ML VIAL SQ SCH (21:14)
[2017-09-06] MEDS: ACETAMINOPHEN TAB 325 MG TAB PO PRN (21:26)
[2017-09-07] MEDS: ARTIFICIAL TEARS-HYPROMELLOSE DROPS 15 ML BTL RIGHT EYE SCH ×7 (00:32→23:32)
[2017-09-07] MEDS: TOBRAMYCIN 0.3% OPHTH DROPS 5 ML BTL RIGHT EYE SCH ×4 (00:33→23:32)
[2017-09-07] MEDS: ceFAZolin IN SWFI 2 GM/20 ML SYRINGE IVP SCH ×4 (00:33→23:32)
[2017-09-07 07:04] LABS: Glucose,Whole Blood 251 mg/dL (75-99)
[2017-09-07] MEDS: INSULIN ASPART 100 UNIT/ML 1 ML 10 ML VIAL SQ SCH ×4 (07:43→20:37)
[2017-09-07] MEDS: PANTOPRAZOLE 40 MG TABLET PO SCH (07:43)
[2017-09-07] MEDS: SODIUM CHLORIDE 0.9% 1,000 ML IV SCH ×3 (07:47→19:21)
[2017-09-07] MEDS: ACETAMINOPHEN TAB 325 MG TAB PO PRN ×3 (07:50→20:40)
--- NOTE | 2017-09-07 08:23 | P.PN ---
Subjective Progress Note Date: 09/07/17 This 77-year-old male who is status post closed reduction and intramedullary hip screw fixation of the right hip. This is postoperative day #1. Patient is nonverbal and there is no family present in the room. Patient is lying comfortably in bed. No events overnight. Objective - Vital Signs Vital signs: Vital Signs Temp 99.8 F H 09/07/17 07:15 Pulse 72 09/07/17 07:15 Resp 18 09/07/17 07:15 BP 150/72 09/07/17 07:15 Pulse Ox 96 09/07/17 07:15 Intake & Output 09/06/17 09/07/17 09/07/17 18:59 06:59 18:59 Intake Total 20100 Output Total 675 2100 Balance 1336 -180 Intake: IV 1611 520 Sodium Chloride 0.9% 1, 260 520 000 ml @ 65 mls/hr IV . [id number] WILLIE Rx#:[id number] Intake, IV Titration 520 Amount Sodium Chloride 0.9% 1, 520 000 ml @ 65 mls/hr IV . [id number] WILLIE Rx#:[id number] Oral 400 880 Output: Urine 575 2100 Estimated Blood Loss 100 Other: Voiding Method Indwelling Catheter Indwelling Catheter - Exam Vital signs are stable. Patient is lying comfortably in bed in no acute distress and is nonverbal. Calf is soft and nontender to palpation. Dressing is clean, dry, and intact. Dorsalis pedis pulse 2+. Neurovascular status and circulatory status are intact. - Labs CBC & Chem 7: 09/06/17 07:25 09/06/17 07:25 Labs: Abnormal Lab Results - Last 24 Hours (Table) 09/06/17 09/06/17 09/06/17 Range/Units 07:25 10:11 12:24 Glucose 219 H (74-99) mg/dL POC Glucose (mg/dL) 211 H 149 H (75-99) mg/dL 09/06/17 09/06/17 09/07/17 Range/Units 17:27 20:55 06:59 Glucose (74-99) mg/dL POC Glucose (mg/dL) 204 H 206 H 251 H (75-99) mg/dL Microbiology - Last 24 Hours (Table) 09/05/17 00:48 Blood Culture - Preliminary Blood No Growth after 48 hours 09/04/17 23:55 Gram Stain - Preliminary Eye - Right Eye Culture - Preliminary Proteus Species 09/04/17 18:20 Urine Culture - Final Urine,Catheterized Assessment and Plan (1) Intertrochanteric fracture of right femur Current Visit: Yes Status: Acute Code(s): S72.141A - DISPLACED INTERTROCHANTERIC FRACTURE OF RIGHT FEMUR, INIT SNOMED Code(s): 863242118 (2) Closed right hip fracture Current Visit: Yes Status: Acute Code(s): S72.001A - FRACTURE OF UNSP PART OF NECK OF RIGHT FEMUR, INIT SNOMED Code(s): 981489915 (3) Fall Current Visit: Yes Status: Acute Code(s): W19.XXXA - UNSPECIFIED FALL, INITIAL ENCOUNTER SNOMED Code(s): 5621931 Plan: 1. Continue routine postoperative care and pain control. 2. 50% weight-bearing to right lower extremity with walker. 3. Daily dressing changes. 4. Anticoagulation with Xarelto. 5. Awaiting discharge to [facility].
[2017-09-07 08:29] LABS: Basophils % (A) 0 %; Eosinophils # (A) 0.1 k/uL (0-0.7); Eosinophils % (A) 0 %; HCT 25.1 % (39.0-53.0); Lymphocytes # (A) 1.5 k/uL (1.0-4.8); Lymphocytes % (A) 12 %; MCH 30.2 pg (25.0-35.0); MCHC 31.8 g/dL (31.0-37.0); MCV 94.8 fL (80.0-100.0); Mean Platelet Volume 6.8; Monocytes # (A) 0.9 k/uL (0-1.0); Monocytes % (A) 7 %; Neutrophils # (A) 9.7 k/uL (1.3-7.7); Neutrophils % (A) 79 %; Platelet Count 329 k/uL (150-450); RBC 2.65 m/uL (4.30-5.90); RDW 13.7 % (11.5-15.5); WBC 12.3 k/uL (3.8-10.6)
[2017-09-07 08:45] LABS: Anion Gap 11 mmol/L; Blood Urea Nitrogen 16 mg/dL (9-20); Calcium 8.6 mg/dL (8.4-10.2); Carbon Dioxide 23 mmol/L (22-30); Chloride 101 mmol/L (98-107); Glucose 224 mg/dL (74-99); Magnesium 1.6 mg/dL (1.6-2.3); Potassium 4.5 mmol/L (3.5-5.1); Sodium 135 mmol/L (137-145)
[2017-09-07] MEDS: RIVAROXABAN 10 MG TAB PO SCH (09:16)
[2017-09-07] MEDS: CARBIDOPA-LEVODOPA 25-100 MG 1 EACH TAB PO SCH ×3 (09:17→23:33)
--- NOTE | 2017-09-07 09:45 | PN ---
PROGRESS NOTE DATE OF EXAM: 09/06/2017 Patient was examined in his bed. He appeared to be comfortable. There was no eye rubbing. He does not appear to be in acute distress from his eye. He did have evidence of some distress secondary to having recent right hip fracture repair. CAT scan was ordered and gathered. The CAT scan shows an orbital mass in the right orbit. The differential for orbital mass of this nature would be lymphoma, glioma, meningioma, metastatic disease. 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 On exam of the CT scan, there is no bony destruction of the orbital rim or further orbital contents. The mass appears to respect the orbital contents including the rectus muscles and the optic nerve. Therefore, this is much less likely to be a glioma or meningioma that raises lymphoma and metastatic disease higher on our differential. Because of this, I feel he needs to have oncologic evaluation to rule out these other disease processes. On exam, Bethany's was performed. It was a difficult exam as the patient is nonverbal and unable to follow commands appropriately. There is at least a 2 to 3 mm proptosis of the right eye. This may be greater, once again it was a difficult exam. I am unable to gather visual acuities, but according to the patient's she believes the patient lost vision in his right eye several months ago. He was ambulatory, but she states that several months ago, he appeared to be missing things on his right side running into kaye, things like that. Pressures were unable to be gathered due to noncompliance of the patient's holding position, but on tactile the intra-ocular pressures appeared to be normal. Extraocular movements were stable from the previous day. Unable to perform confrontation to visual [place] due to the patient's mental status. Penlight examination revealed swelling of the eyelids. Conjunctiva had some chemosis with like a pink-type color to the conjunctiva. This may be related to lymphoid infiltration. The cornea had arcus senilis. The anterior chamber was formed. The iris was flat and the pupil was reactive. Unable to get drops appropriately into the patient's eye for posterior evaluation. Discussion was made with the patient's and family in regards to further evaluations. The patient is going to need to have oncologic evaluation looking for metastatic and lymphoid disease processes. If these come back negative, then the patient is going to need to have orbital biopsy of the mass. Unfortunately, we do not have a retroorbital surgeon in [place]. Therefore, when the patient is cleared from his hip fracture repair if we need to we will make a recommendation for a retrobulbar surgeon down in the [place] area. MMODL / IJN: [id number] /
[2017-09-07] MEDS: MAGNESIUM SULFATE-D5W PMX 1 GM in DEXTROSE/WATER 1 100ML.BAG IVPB SCH ×2 (10:16→11:35)
[2017-09-07] MEDS ORDERED: MORPHINE SULFATE 2 MG/ML SYRINGE IVP PRN (11:08)
[2017-09-07 11:11] LABS: Glucose,Whole Blood 250 mg/dL (75-99)
--- NOTE | 2017-09-07 15:38 | CDI ---
Last Revision, March 2017 Documentation Clarification Form Date: 09/07/17 From: Little Porras RN, CCDS Admit Date: 09/04/2017 6:13:00 PM Patient Name: Wei Colindres Visit Number: [id number] Discharge Date: ATTENTION: The Clinical Documentation Specialists (CDI) and [facility] Coding Staff appreciate your assistance in clarifying documentation. Please respond to the clarification below the line at the bottom and electronically sign. The CDI & [facility] Coding staff will review the response and follow-up if needed. Please note: Queries are made part of the Legal Health Record. If you have any questions, please contact the author of this message via ITS. Dr. Harriet Waddell A diagnosis of post-op anemia lacks specificity to accurately reflect your patients severity of condition and clarification is needed. History/Risk Factors: Clinical indicators: Present after a fall with a right hip fracture. He is status post close reduction and intramedullary hip screw fixation of right hip. Per operative report estimated blood loss was 100 mls. Admission HGB: 10.5 09/06/17 HGB 8.5 Admission HCT: 31.9 09/06/17 HCT 26.2 Treatment: Monitoring labs IV Fluids In order to capture the severity of condition, please further clarify the type of anemia and etiology if known: Specify if: Expected post op condition or unexpected post op condition Acute blood loss anemia Acute on chronic blood loss anemia Unable to determine Other, please specify Please continue to document in your progress notes and discharge summary in order to capture severity of illness and risk of mortality. Include clinical findings that support your diagnosis. MTDD
[2017-09-07 17:28] LABS: Glucose,Whole Blood 233 mg/dL (75-99)
[2017-09-07] MEDS: CIPROFLOXACIN 0.3% OPHTH SOLN 5 ML BTL BOTH EYES SCH ×3 (17:51→23:33)
--- NOTE | 2017-09-07 17:56 | P.PN ---
Subjective Progress Note Date: 09/07/17 Progress note being dictated for Dr. Waddell. Interval history: This is a 77-year-old admitted for right hip fracture will undergo surgical intervention tomorrow. Patient does have dementia and evidences medicine hypertension patient lisinopril will be held as I'm expecting perioperative hypotension. Patient's metformin will be held as well will continue sliding scale insulin Review of systems unable to obtain 09/06/2017 just returning from surgery, tolerated procedure well. Pain currently controlled. Family at bedside. 09/07/2017 no events overnight.T-max 99.8, maintaining O2 sats of 96% on room air. 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 Evaluated by Dr. Medel, ophthalmology, recommendations noted. Vital signs stable. Passing flatus, no bowel movement. Magnesium being supplemented. No family currently at bedside. PT at bedside performing bed exercises. Appears comfortable. Objective - Vital Signs Vital signs: Vital Signs Temp 97 F L 09/07/17 14:02 Pulse 66 09/07/17 14:02 Resp 16 09/07/17 14:02 BP 110/68 09/07/17 14:02 Pulse Ox 85 L 09/07/17 14:02 Intake & Output 09/06/17 09/07/17 09/07/17 18:59 06:59 18:59 Intake Total 20100 618 Output Total 675 2100 1050 Balance 1336 -180 -432 Intake: IV 1611 520 Sodium Chloride 0.9% 1, 260 520 000 ml @ 65 mls/hr IV . [id number] [facility] Rx#:[id number] Intake, IV Titration 520 Amount Sodium Chloride 0.9% 1, 520 000 ml @ 65 mls/hr IV . [id number] [facility] Rx#:[id number] Oral 400 880 618 Output: Urine 575 2100 1050 Estimated Blood Loss 100 Other: Voiding Method Indwelling Catheter Indwelling Catheter Indwelling Catheter - Exam GENERAL: The patient is alert and unable to assess as patient is nonverbal, not in any acute distress. Well developed, well nourished. HEENT: Pupils are round, right-sided pyptosis-like with reddened conjunctiva, Normocephalic, atraumatic. No pharyngeal erythema. No thyromegaly. CARDIOVASCULAR: S1 and S2 present. No murmurs, rubs, or gallops. PULMONARY: Chest is clear to auscultation, no wheezing or crackles. ABDOMEN: Soft, nontender, nondistended, normoactive bowel sounds. No palpable organomegaly. MUSCULOSKELETAL: Deferred to orthopedic surgery EXTREMITIES: No cyanosis, clubbing, or pedal edema. NEUROLOGICAL: Gross neurological examination did not reveal any focal deficits. SKIN: No rashes. - Labs CBC & Chem 7: 09/07/17 07:11 09/07/17 07:11 Labs: Abnormal Lab Results - Last 24 Hours (Table) 09/06/17 09/07/17 09/07/17 Range/Units 20:55 06:59 07:11 WBC 12.3 H (3.8-10.6) k/uL RBC 2.65 L (4.30-5.90) m/uL Hgb 8.0 L (13.0-17.5) gm/dL Hct 25.1 L (39.0-53.0) % Neutrophils # 9.7 H (1.3-7.7) k/uL Sodium (137-145) mmol/L Glucose (74-99) mg/dL POC Glucose (mg/dL) 206 H 251 H (75-99) mg/dL 09/07/17 09/07/17 09/07/17 Range/Units 07:11 11:09 17:26 WBC (3.8-10.6) k/uL RBC (4.30-5.90) m/uL Hgb (13.0-17.5) gm/dL Hct (39.0-53.0) % Neutrophils # (1.3-7.7) k/uL Sodium 135 L (137-145) mmol/L Glucose 224 H (74-99) mg/dL POC Glucose (mg/dL) 250 H 233 H (75-99) mg/dL Microbiology - Last 24 Hours (Table) 09/04/17 23:55 Gram Stain - Final Eye - Right Eye Culture - Final Proteus mirabilis 09/05/17 00:48 Blood Culture - Preliminary Blood No Growth after 48 hours Assessment and Plan Assessment: -Right hip fracture, status post close reduction and intramedullary hip screw fixation of right hip -Hypertension hold off lisinopril because of above-mentioned reasons -History of dementia. 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 -Eye culture positive with Proteus Mirabellis Plan: Continue on current medication regime ,monitoring and symptomatic treatment. Follow closely with ophthalmology. Cipro eyedrops added to med regime with further recommendations pending from ophthalmology. Pain management. Strict aspiration precautions. Aggressive pulmonary toileting. Close monitoring of Accu-Cheks, electrolytes, hemoglobin with repeat labs ordered for a.m. Further recommendations to follow. The impression and plan of care has been dictated as directed. : I performed a history and examination of this patient, discussed the same with the dictator. I agree with the dictator's note ,documented as a scribe. Any additional findings or plans will be noted.
[2017-09-07 20:37] LABS: Glucose,Whole Blood 317 mg/dL (75-99)
[2017-09-07] MEDS: CYANOCOBALAMIN 500 MCG TAB PO SCH (20:38)
[2017-09-07] MEDS: FOLIC ACID 1 MG TAB PO SCH (20:38)
[2017-09-07] MEDS: INSULIN DETEMIR 100 UNIT/ML 10 ML VIAL SQ SCH (20:38)
[2017-09-07] MEDS: PRAVASTATIN SODIUM 20 MG TAB PO SCH (20:39)
[2017-09-07] MEDS: CLOTRIMAZOLE 1% CREAM 15 GM TUBE TOPICAL SCH (20:39)
[2017-09-07] MEDS: predniSONE 20 MG TAB PO SCH (20:40)
[2017-09-07] MEDS: SENNOSIDES-DOCUSATE SODIUM 1 EACH TAB PO SCH (20:43)
[2017-09-08] MEDS: ACETAMINOPHEN TAB 325 MG TAB PO PRN ×4 (02:14→21:30)
[2017-09-08] MEDS: CIPROFLOXACIN 0.3% OPHTH SOLN 5 ML BTL BOTH EYES SCH ×3 (04:19→12:17)
[2017-09-08] MEDS: ARTIFICIAL TEARS-HYPROMELLOSE DROPS 15 ML BTL RIGHT EYE SCH ×5 (04:19→21:30)
[2017-09-08 07:08] LABS: Glucose,Whole Blood 220 mg/dL (75-99)
[2017-09-08] MEDS: INSULIN ASPART 100 UNIT/ML 1 ML 10 ML VIAL SQ SCH ×4 (07:43→21:46)
[2017-09-08] MEDS: CARBIDOPA-LEVODOPA 25-100 MG 1 EACH TAB PO SCH ×3 (07:45→21:32)
[2017-09-08] MEDS: PANTOPRAZOLE 40 MG TABLET PO SCH (07:45)
[2017-09-08] MEDS: TOBRAMYCIN 0.3% OPHTH DROPS 5 ML BTL RIGHT EYE SCH ×2 (07:45→17:07)
[2017-09-08] MEDS: RIVAROXABAN 10 MG TAB PO SCH (07:46)
[2017-09-08 08:44] LABS: Basophils % (A) 0 %; Eosinophils # (A) 0.1 k/uL (0-0.7); Eosinophils % (A) 0 %; HCT 24.4 % (39.0-53.0); HGB 7.5 gm/dL (13.0-17.5); Hypochromasia Slight; Lymphocytes # (A) 1.1 k/uL (1.0-4.8); Lymphocytes % (A) 9 %; MCH 29.8 pg (25.0-35.0); MCHC 30.8 g/dL (31.0-37.0); MCV 96.6 fL (80.0-100.0); Monocytes # (A) 0.7 k/uL (0-1.0); Monocytes % (A) 6 %; Neutrophils # (A) 9.9 k/uL (1.3-7.7); Neutrophils % (A) 84 %; Platelet Count 352 k/uL (150-450); RBC 2.52 m/uL (4.30-5.90); RDW 13.4 % (11.5-15.5); WBC 11.8 k/uL (3.8-10.6)
[2017-09-08 08:59] LABS: Anion Gap 10 mmol/L; Blood Urea Nitrogen 20 mg/dL (9-20); Calcium 8.5 mg/dL (8.4-10.2); Carbon Dioxide 24 mmol/L (22-30); Chloride 101 mmol/L (98-107); Glucose 240 mg/dL (74-99); Magnesium 1.9 mg/dL (1.6-2.3); Potassium 5.2 mmol/L (3.5-5.1); Sodium 135 mmol/L (137-145)
[2017-09-08] MEDS: ceFAZolin IN SWFI 2 GM/20 ML SYRINGE IVP SCH ×2 (10:08→17:07)
[2017-09-08 12:07] LABS: Glucose,Whole Blood 354 mg/dL (75-99)
--- NOTE | 2017-09-08 12:21 | P.PN ---
Subjective Progress Note Date: 09/08/17 Principal diagnosis: Right IT FX Patient is seen at bedside this morning. He is postop day #2 from closed reduction internal fixation with IT nail for right hip fracture. He suffers from dementia and thus interview does not elicit any new information. He is in no apparent distress. ROS unobtainable. Objective - Vital Signs Vital signs: Vital Signs Temp 98.3 F 09/08/17 02:34 Pulse 81 09/07/17 19:30 Resp 18 09/07/17 19:30 BP 113/52 09/07/17 19:30 Pulse Ox 95 09/07/17 19:30 Intake & Output 09/07/17 09/08/17 09/08/17 18:59 06:59 18:59 Intake Total 738 935 120 Output Total 1050 1275 475 Balance -312 -340 -355 Intake: IV 455 Sodium Chloride 0.9% 1, 455 000 ml @ 65 mls/hr IV . [id number] [facility] Rx#:[id number] Oral 738 480 120 Output: Urine 1050 1275 475 Uretheral (Marsh) 475 Other: Voiding Method Indwelling Catheter Indwelling Catheter Indwelling Catheter - Exam He is NAD. Inspection reveals a benign surgical wound. There is no active bleeding or drainage. Neurovascular status appears to be intact throughout the lower extremity with motor and sensation. Calf is soft and nontender. 2+ dorsalis pedis pulse and less than 2 second cap refill is present - Constitutional General appearance: Present: no acute distress - Labs CBC & Chem 7: 09/08/17 08:11 09/08/17 08:11 Labs: Abnormal Lab Results - Last 24 Hours (Table) 09/07/17 09/07/17 09/08/17 Range/Units 17:26 20:33 07:05 WBC (3.8-10.6) k/uL RBC (4.30-5.90) m/uL Hgb (13.0-17.5) gm/dL Hct (39.0-53.0) % MCHC (31.0-37.0) g/dL Neutrophils # (1.3-7.7) k/uL Sodium (137-145) mmol/L Potassium (3.5-5.1) mmol/L Glucose (74-99) mg/dL POC Glucose (mg/dL) 233 H 317 H 220 H (75-99) mg/dL 09/08/17 09/08/17 09/08/17 Range/Units 08:11 08:11 12:04 WBC 11.8 H (3.8-10.6) k/uL RBC 2.52 L (4.30-5.90) m/uL Hgb 7.5 L (13.0-17.5) gm/dL Hct 24.4 L (39.0-53.0) % MCHC 30.8 L (31.0-37.0) g/dL Neutrophils # 9.9 H (1.3-7.7) k/uL Sodium 135 L (137-145) mmol/L Potassium 5.2 H (3.5-5.1) mmol/L Glucose 240 H (74-99) mg/dL POC Glucose (mg/dL) 354 H (75-99) mg/dL Microbiology - Last 24 Hours (Table) 09/05/17 00:48 Blood Culture - Preliminary Blood No Growth after 72 hours 09/04/17 23:55 Gram Stain - Final Eye - Right Eye Culture - Final Proteus mirabilis Assessment and Plan (1) Closed right hip fracture Narrative/Plan: He will continue with routine postop orthopedic protocol including pain management, wound care, physical therapy, DVT prophylaxis and medical management. Expect that he will transfer to rehab in next few days. Current Visit: Yes Status: Acute Code(s): S72.001A - FRACTURE OF UNSP PART OF NECK OF RIGHT FEMUR, INIT SNOMED Code(s): 982069423 Time with Patient: Less than 30
--- NOTE | 2017-09-08 13:25 | P.PN ---
Subjective This is a 77-year-old admitted for right hip fracture will undergo surgical intervention tomorrow. Patient does have dementia and evidences medicine hypertension patient lisinopril will be held as I'm expecting perioperative hypotension. Patient's metformin will be held as well will continue sliding scale insulin Review of systems unable to obtain 09/06/2017 just returning from surgery, tolerated procedure well. Pain currently controlled. Family at bedside. 09/07/2017 no events overnight.T-max 99.8, maintaining O2 sats of 96% on room air. 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 Evaluated by Dr. Medel, ophthalmology, recommendations noted. Vital signs stable. Passing flatus, no bowel movement. Magnesium being supplemented. No family currently at bedside. PT at bedside performing bed exercises. Appears comfortable. 09/08/2017 No overnight events. Patient has Proteus mirabilis from the eye culture patient was started on tobramycin eyedrops, I do not see any conjunctivitis at this time but from that was the patient appears like patient has right periorbital cellulitis and patient is on IV cefazolin as well which will be continued Objective - Vital Signs Vital signs: Vital Signs Temp 98.3 F 09/08/17 02:34 Pulse 81 09/07/17 19:30 Resp 18 09/07/17 19:30 BP 113/52 09/07/17 19:30 Pulse Ox 95 09/07/17 19:30 Intake & Output 09/07/17 09/08/17 09/08/17 18:59 06:59 18:59 Intake Total 738 935 120 Output Total 1050 1275 475 Balance -312 -340 -355 Weight 90.718 kg Intake: IV 455 Sodium Chloride 0.9% 1, 455 000 ml @ 65 mls/hr IV . [id number] [facility] Rx#:[id number] Oral 738 480 120 Output: Urine 1050 1275 475 Uretheral (Marsh) 475 Other: Voiding Method Indwelling Catheter Indwelling Catheter Indwelling Catheter - Exam PHYSICAL EXAMINATION: GENERAL: The patient is alert and unable to assess as patient is nonverbal, not in any acute distress. Well developed, well nourished. HEENT: Pupils are round and equally reacting to light. EOMI. No scleral icterus. No conjunctival pallor. Normocephalic, atraumatic. No pharyngeal erythema. No thyromegaly. CARDIOVASCULAR: S1 and S2 present. No murmurs, rubs, or gallops. PULMONARY: Chest is clear to auscultation, no wheezing or crackles. ABDOMEN: Soft, nontender, nondistended, normoactive bowel sounds. No palpable organomegaly. MUSCULOSKELETAL: Deferred to orthopedic surgery EXTREMITIES: No cyanosis, clubbing, or pedal edema. NEUROLOGICAL: Gross neurological examination did not reveal any focal deficits. SKIN: No rashes. - Labs CBC & Chem 7: 09/08/17 08:11 09/08/17 08:11 Labs: Abnormal Lab Results - Last 24 Hours (Table) 09/07/17 09/07/17 09/08/17 Range/Units 17:26 20:33 07:05 WBC (3.8-10.6) k/uL RBC (4.30-5.90) m/uL Hgb (13.0-17.5) gm/dL Hct (39.0-53.0) % MCHC (31.0-37.0) g/dL Neutrophils # (1.3-7.7) k/uL Sodium (137-145) mmol/L Potassium (3.5-5.1) mmol/L Glucose (74-99) mg/dL POC Glucose (mg/dL) 233 H 317 H 220 H (75-99) mg/dL 09/08/17 09/08/17 09/08/17 Range/Units 08:11 08:11 12:04 WBC 11.8 H (3.8-10.6) k/uL RBC 2.52 L (4.30-5.90) m/uL Hgb 7.5 L (13.0-17.5) gm/dL Hct 24.4 L (39.0-53.0) % MCHC 30.8 L (31.0-37.0) g/dL Neutrophils # 9.9 H (1.3-7.7) k/uL Sodium 135 L (137-145) mmol/L Potassium 5.2 H (3.5-5.1) mmol/L Glucose 240 H (74-99) mg/dL POC Glucose (mg/dL) 354 H (75-99) mg/dL Microbiology - Last 24 Hours (Table) 09/05/17 00:48 Blood Culture - Preliminary Blood No Growth after 72 hours 09/04/17 23:55 Gram Stain - Final Eye - Right Eye Culture - Final Proteus mirabilis Assessment and Plan Plan: Assessment and Plan Assessment: -Right hip fracture, status post close reduction and intramedullary hip screw fixation of right hip -Hypertension hold off lisinopril due to hyperkalemia. Repeat basic metabolic profile tomorrow -History of dementia. 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 -Eye culture positive with Proteus Mirabellis, with possible periorbital cellulitis.
[2017-09-08 16:02] VITALS: RESP 16
[2017-09-08 17:36] LABS: Glucose,Whole Blood 286 mg/dL (75-99)
[2017-09-08] MEDS: CLOTRIMAZOLE 1% CREAM 15 GM TUBE TOPICAL SCH (21:30)
[2017-09-08] MEDS: CYANOCOBALAMIN 500 MCG TAB PO SCH (21:30)
[2017-09-08] MEDS: FOLIC ACID 1 MG TAB PO SCH (21:31)
[2017-09-08] MEDS: SENNOSIDES-DOCUSATE SODIUM 1 EACH TAB PO SCH (21:32)
[2017-09-08] MEDS: predniSONE 20 MG TAB PO SCH (21:32)
[2017-09-08] MEDS: PRAVASTATIN SODIUM 20 MG TAB PO SCH (21:32)
[2017-09-08 21:45] LABS: Glucose,Whole Blood 285 mg/dL (75-99)
[2017-09-08] MEDS: INSULIN DETEMIR 100 UNIT/ML 10 ML VIAL SQ SCH (21:46)
[2017-09-09] MEDS: ceFAZolin IN SWFI 2 GM/20 ML SYRINGE IVP SCH ×3 (00:55→16:46)
[2017-09-09] MEDS: ARTIFICIAL TEARS-HYPROMELLOSE DROPS 15 ML BTL RIGHT EYE SCH ×6 (00:56→22:12)
[2017-09-09] MEDS: TOBRAMYCIN 0.3% OPHTH DROPS 5 ML BTL RIGHT EYE SCH ×3 (00:57→16:47)
--- NOTE | 2017-09-09 04:09 | CONS ---
CONSULTATION DATE OF CONSULTATION: 09/07/2017 REASON FOR CONSULTATION: The swelling of the right eye with suspected right sinusitis. HISTORY OF PRESENT ILLNESS: This patient is a 77-year-old male who is not available for historical information because of a past stroke. Information is obtained from the family and from the chart. The patient's son states that he had a swollen right eye for probably over a year. The patient is a resident at one of the local nursing homes and apparently they have been putting some type of eye drop in the eye, but there is not any improvement in the condition of the eye. The patient's right eye has been almost swollen shut for approximately 1 year. To the best of the son's knowledge, the patient does not have a history of having recurrent sinus infections. I was called by Dr. Medel who was concerned about the possibility of a severe sinus infection as sources for the patient's apparent proptosis. A CT scan was initially ordered of the sinuses, which included the orbits. This initially showed evidence of mild sinusitis involving the maxillary sinuses and the ethmoid sinuses. It did not show any evidence of any significant lesions or masses in either any of the sinuses. However, an addendum was later added to the CT report, which was reviewed by Dr. Sandoval and Dr. Medel. Further review revealed that there was a homogeneous irregular lobular mass along the lateral aspect of the orbit. The mass was symmetrical, did not involve the extraocular muscles or the optic nerve. It appeared to be confined to the orbit and did not involve any of the sinuses, that is to say the ethmoids, sphenoid or the maxillary sinus. A suggestion was made by the radiologist to a possible diagnosis of lymphoma or pseudotumor. The patient was initially placed on antibiotic ear drops and his proptosis appeared to be responding to the antibiotic ear drops, that is to say, the proptosis improved and this was noted by both the nurses and the family. PAST MEDICAL HISTORY: Past medical history reveals patient has no known allergies MEDICATIONS: His current medications at the [facility] include metformin, Sinemet, Glucophage, prednisone, lisinopril p.r.n., Levemir, Xarelto, and Pravachol. REVIEW OF SYSTEMS: Reveals that the cardiovascular system is positive, respiratory system is negative. Gastrointestinal system is negative. Metabolic/endocrine system is positive for type 1 diabetes mellitus and hypercholesterolemia. Neurological is positive for dementia. Remainder of review of systems unremarkable. PHYSICAL EXAM: HEENT examination: Patient is normocephalic. Examination of the pupils reveals that they are be equal, round, and reactive. The patient has some degree of proptosis and periorbital swelling on the right. The conjunctiva are clear. Evaluation of extraocular movements is not possible because of the patient is not able to cooperate. Intranasal examination reveals severe septal deviation, but I do not see any evidence of any intranasal mass. The examination of the oropharynx is unremarkable. Palpation of the neck and the remainder of the head and neck exam is essentially unremarkable. Examination of the cranial nerves is limited because of noncooperation by the patient. CHEST/CARDIOVASCULAR: Both lung daven[place] are clear to percussion and auscultation. The patient is in regular sinus rhythm S1, S2 are present. No murmurs S3s or S4. The remainder of the physical examination is limited because of the patient's dementia. IMPRESSION: Proptosis, most likely secondary to a intraorbital mass, pseudotumor, lymphoma (?) and mild maxillary sinusitis. 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 PLAN: At this point, I do not see any contribution that ENT could make to this patient's case. With respect to the to the intraorbital mass, Dr. Medel will make a decision whether or not this is something that he will treat or whether he will refer this patient to [facility] or the [facility] for possible biopsy. That decision will be left to Dr. Medel since it is not an ENT problem. I want to take this opportunity to thank you for allowing me to assist in the care of this patient. If I can be of any further assistance, please feel free to call my office. MMODL / IJN: [id number] /
[2017-09-09 06:56] LABS: Glucose,Whole Blood 302 mg/dL (75-99)
[2017-09-09 07:10] LABS: Anion Gap 9 mmol/L; Blood Urea Nitrogen 21 mg/dL (9-20); Calcium 8.4 mg/dL (8.4-10.2); Carbon Dioxide 25 mmol/L (22-30); Chloride 102 mmol/L (98-107); Glucose 271 mg/dL (74-99); Sodium 136 mmol/L (137-145)
[2017-09-09] MEDS: INSULIN ASPART 100 UNIT/ML 1 ML 10 ML VIAL SQ SCH ×4 (08:57→22:13)
[2017-09-09] MEDS: PANTOPRAZOLE 40 MG TABLET PO SCH (08:58)
[2017-09-09] MEDS: CARBIDOPA-LEVODOPA 25-100 MG 1 EACH TAB PO SCH ×3 (08:59→22:14)
[2017-09-09] MEDS: RIVAROXABAN 10 MG TAB PO SCH (09:00)
[2017-09-09] MEDS: ACETAMINOPHEN TAB 325 MG TAB PO PRN ×2 (09:03→22:15)
--- NOTE | 2017-09-09 10:40 | XR ---
EXAMINATION TYPE: XR chest 1V portable DATE OF EXAM: 09/09/2017 CLINICAL HISTORY: Abnormal physical exam, crackles left lung. TECHNIQUE: Single AP portable upright view of the chest is obtained. COMPARISON: Chest x-ray from September 04, 2017 FINDINGS: There is left basilar opacity that is now present. Right lung is clear. No large pleural e ffusion or pneumothorax is present bilaterally. Cardiac silhouette size is stable and within normal l imits. Osseous structures are demineralized. IMPRESSION: New developing left basilar atelectasis and/or infiltrate is felt present.
[2017-09-09 11:33] LABS: Glucose,Whole Blood 380 mg/dL (75-99)
--- NOTE | 2017-09-09 12:41 | P.PN ---
Subjective Progress Note Date: 09/09/17 Principal diagnosis: Right IT FX Patient is seen at bedside this morning. He is postop day #3 from closed reduction internal fixation with IT nail for right hip fracture. He suffers from dementia and thus interview does not elicit any new information. He is in no apparent distress. ROS unobtainable. Objective - Vital Signs Vital signs: Vital Signs Temp 98.6 F 09/09/17 06:40 Pulse 75 09/09/17 06:40 Resp 16 09/09/17 06:40 BP 129/66 09/09/17 06:40 Pulse Ox 100 09/09/17 06:40 Intake & Output 09/08/17 09/09/17 09/09/17 18:59 06:59 18:59 Intake Total 2035 2040 Output Total 975 1950 750 Balance 1060 90 -750 Weight 90.718 kg Intake: IV 455 520 Sodium Chloride 0.9% 1, 455 520 000 ml @ 65 mls/hr IV . [id number] [facility] Rx#:[id number] Intake, IV Titration 520 Amount Sodium Chloride 0.9% 1, 520 000 ml @ 65 mls/hr IV . [id number] [facility] Rx#:[id number] Oral 1580 1000 Output: Urine 975 1950 750 Uretheral (Marsh) 975 750 Other: Voiding Method Indwelling Catheter Indwelling Catheter Indwelling Catheter - Exam He is NAD. Inspection reveals a benign surgical wound. There is no active bleeding or drainage. Neurovascular status appears to be intact throughout the lower extremity with motor and sensation. Calf is soft and nontender. 2+ dorsalis pedis pulse and less than 2 second cap refill is present - Constitutional General appearance: Present: no acute distress - Labs CBC & Chem 7: 09/08/17 08:11 09/09/17 06:43 Labs: Abnormal Lab Results - Last 24 Hours (Table) 09/08/17 09/08/17 09/09/17 Range/Units 17:28 21:41 06:43 Sodium 136 L (137-145) mmol/L BUN 21 H (9-20) mg/dL Glucose 271 H (74-99) mg/dL POC Glucose (mg/dL) 286 H 285 H (75-99) mg/dL 09/09/17 09/09/17 Range/Units 06:52 11:13 Sodium (137-145) mmol/L BUN (9-20) mg/dL Glucose (74-99) mg/dL POC Glucose (mg/dL) 302 H 380 H (75-99) mg/dL Microbiology - Last 24 Hours (Table) 09/05/17 00:48 Blood Culture - Preliminary Blood No Growth after 96 hours 09/07/17 20:54 Blood Culture - Preliminary Blood No Growth after 24 hours 09/07/17 19:52 Blood Culture - Preliminary Blood No Growth after 24 hours Assessment and Plan (1) Closed right hip fracture Narrative/Plan: He will continue with routine postop orthopedic protocol including pain management, wound care, physical therapy, DVT prophylaxis and medical management. Expect that he will transfer to rehab in next few days. Current Visit: Yes Status: Acute Priority: Medium Code(s): S72.001A - FRACTURE OF UNSP PART OF NECK OF RIGHT FEMUR, INIT SNOMED Code(s): 232836158 Time with Patient: Less than 30
--- NOTE | 2017-09-09 13:59 | P.PN ---
Subjective This is a 77-year-old admitted for right hip fracture will undergo surgical intervention tomorrow. Patient does have dementia and evidences medicine hypertension patient lisinopril will be held as I'm expecting perioperative hypotension. Patient's metformin will be held as well will continue sliding scale insulin Review of systems unable to obtain 09/06/2017 just returning from surgery, tolerated procedure well. Pain currently controlled. Family at bedside. 09/07/2017 no events overnight.T-max 99.8, maintaining O2 sats of 96% on room air. 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 Evaluated by Dr. Medel, ophthalmology, recommendations noted. Vital signs stable. Passing flatus, no bowel movement. Magnesium being supplemented. No family currently at bedside. PT at bedside performing bed exercises. Appears comfortable. 09/08/2017 No overnight events. Patient has Proteus mirabilis from the eye culture patient was started on tobramycin eyedrops, I do not see any conjunctivitis at this time but from that was the patient appears like patient has right periorbital cellulitis and patient is on IV cefazolin as well which will be continued 09/10/2079 Patient has crackles on lung exam because of which are I obtain the chest x-ray which showed atelectasis. I did do the medication reconciliation just in case the patient is being discharged tomorrow or today patient has elevated blood sugars because of which I'm increasing the Lantus to 40 units unsure why patient is on prednisone at nighttime that will be tapered down. Objective - Vital Signs Vital signs: Vital Signs Temp 98.6 F 09/09/17 06:40 Pulse 75 09/09/17 06:40 Resp 16 09/09/17 06:40 BP 129/66 09/09/17 06:40 Pulse Ox 100 09/09/17 06:40 Intake & Output 09/08/17 09/09/17 09/09/17 18:59 06:59 18:59 Intake Total 2034 2039 Output Total 975 1950 750 Balance 1060 90 -750 Weight 90.718 kg Intake: IV 455 520 Sodium Chloride 0.9% 1, 455 520 000 ml @ 65 mls/hr IV . [id number] [facility] Rx#:[id number] Intake, IV Titration 520 Amount Sodium Chloride 0.9% 1, 520 000 ml @ 65 mls/hr IV . [id number] [facility] Rx#:[id number] Oral 1580 1000 Output: Urine 975 1950 750 Uretheral (Marsh) 975 750 Other: Voiding Method Indwelling Catheter Indwelling Catheter Indwelling Catheter - Exam PHYSICAL EXAMINATION: GENERAL: The patient is alert and unable to assess as patient is nonverbal, not in any acute distress. Well developed, well nourished. HEENT: Pupils are round and equally reacting to light. EOMI. No scleral icterus. No conjunctival pallor. Normocephalic, atraumatic. No pharyngeal erythema. No thyromegaly. CARDIOVASCULAR: S1 and S2 present. No murmurs, rubs, or gallops. PULMONARY: Chest is clear to auscultation, no wheezing or crackles. ABDOMEN: Soft, nontender, nondistended, normoactive bowel sounds. No palpable organomegaly. MUSCULOSKELETAL: Deferred to orthopedic surgery EXTREMITIES: No cyanosis, clubbing, or pedal edema. NEUROLOGICAL: Gross neurological examination did not reveal any focal deficits. SKIN: No rashes. - Labs CBC & Chem 7: 09/08/17 08:11 09/09/17 06:43 Labs: Abnormal Lab Results - Last 24 Hours (Table) 09/08/17 09/08/17 09/09/17 Range/Units 17:28 21:41 06:43 Sodium 136 L (137-145) mmol/L BUN 21 H (9-20) mg/dL Glucose 271 H (74-99) mg/dL POC Glucose (mg/dL) 286 H 285 H (75-99) mg/dL 09/09/17 09/09/17 Range/Units 06:52 11:13 Sodium (137-145) mmol/L BUN (9-20) mg/dL Glucose (74-99) mg/dL POC Glucose (mg/dL) 302 H 380 H (75-99) mg/dL Microbiology - Last 24 Hours (Table) 09/05/17 00:48 Blood Culture - Preliminary Blood No Growth after 96 hours 09/07/17 20:54 Blood Culture - Preliminary Blood No Growth after 24 hours 09/07/17 19:52 Blood Culture - Preliminary Blood No Growth after 24 hours Assessment and Plan Plan: Assessment and Plan Assessment: -Right hip fracture, status post close reduction and intramedullary hip screw fixation of right hip -Hypertension hold off lisinopril due to hyperkalemia. Repeat basic metabolic profile tomorrow -History of dementia. 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 -Eye culture positive with Proteus Mirabellis, with possible periorbital cellulitis.
[2017-09-09 16:45] LABS: Glucose,Whole Blood 306 mg/dL (75-99)
[2017-09-09] MEDS ORDERED: INSULIN DETEMIR 100 UNIT/ML 10 ML VIAL SQ SCH (21:00)
[2017-09-09 21:04] VITALS: BP 143/77; PULSE 98; TEMP 97.9
[2017-09-09 22:08] LABS: Glucose,Whole Blood 319 mg/dL (75-99)
[2017-09-09] MEDS: FOLIC ACID 1 MG TAB PO SCH (22:13)
[2017-09-09] MEDS: CLOTRIMAZOLE 1% CREAM 15 GM TUBE TOPICAL SCH (22:13)
[2017-09-09] MEDS: CYANOCOBALAMIN 500 MCG TAB PO SCH (22:13)
[2017-09-09] MEDS: SENNOSIDES-DOCUSATE SODIUM 1 EACH TAB PO SCH (22:14)
[2017-09-09] MEDS: PRAVASTATIN SODIUM 20 MG TAB PO SCH (22:14)
[2017-09-09] MEDS: predniSONE 20 MG TAB PO SCH (22:14)
[2017-09-10] MEDS: ceFAZolin IN SWFI 2 GM/20 ML SYRINGE IVP SCH ×2 (00:05→07:23)
[2017-09-10] MEDS: ARTIFICIAL TEARS-HYPROMELLOSE DROPS 15 ML BTL RIGHT EYE SCH ×4 (00:05→12:39)
[2017-09-10] MEDS: TOBRAMYCIN 0.3% OPHTH DROPS 5 ML BTL RIGHT EYE SCH ×2 (00:05→07:23)
[2017-09-10 06:51] LABS: Glucose,Whole Blood 246 mg/dL (75-99)
[2017-09-10] MEDS: PANTOPRAZOLE 40 MG TABLET PO SCH (07:23)
[2017-09-10] MEDS: INSULIN ASPART 100 UNIT/ML 1 ML 10 ML VIAL SQ SCH ×2 (07:24→12:39)
[2017-09-10] MEDS: RIVAROXABAN 10 MG TAB PO SCH (07:26)
[2017-09-10] MEDS: CARBIDOPA-LEVODOPA 25-100 MG 1 EACH TAB PO SCH (07:26)
--- NOTE | 2017-09-10 10:08 | P.DS ---
Providers Date of admission: 09/04/17 18:13 Expected date of discharge: 09/10/17 Attending physician: Mike Brambila Consults: 09/04/17 18:13 Consult Physician Routine Consulting Provider: Tripp Almaraz Consult Reason/Comments: medmgmgnt Do you want consulting provider notified?: Yes 09/04/17 23:41 Consult Physician Routine Consulting Provider: Mike Medel Consult Reason/Comments: Right Eye swelling and Drainage Do you want consulting provider notified?: Yes, Notify in am 09/05/17 17:21 Consult Physician Routine Consulting Provider: Leo Rosales Consult Reason/Comments: Swollen sinus Do you want consulting provider notified?: Yes Primary care physician: Mohamud Roberts - Akil Diagnosis(es) (1) Intertrochanteric fracture of right femur Current Visit: Yes Status: Acute (2) Closed right hip fracture Current Visit: Yes Status: Acute Priority: Medium (3) Fall Current Visit: Yes Status: Acute Hospital Course: This is a [id number] who sustained a right intertrochanteric hip fracture after a fall. The patient was admitted for further evaluation via the emergency room. Patient has a history of dementia. After discussion and consideration patient's family elects to proceed with closed reduction and intramedullary hip screw fixation right hip. The patient is seen preoperatively by Dr. Brambila and medically cleared for surgery by internal medicine. Patient is admitted to [facility] on 09/04/2017 and closed reduction intramedullary hip screw fixation right hip is done on 09/06/2017. The procedures performed without complication or sequelae. The patient is doing well postoperatively. Labs and vital signs are stable on day of discharge. Patient was also evaluated via CT scan for periorbital cellulitis by ophthalmology and is being treated with antibiotics. On day of discharge patient's hip incision is healing well. There is minimal erythema. There is no drainage noted at this time. There is minimal soft tissue swelling to the hip and thigh. Calf is soft and nontender. Neurovascular status to the right lower extremity is intact. Patient is discharged to rehab in good condition. Please see med rec for accurate list of home medications. Patient Condition at Discharge: Fair Plan - Discharge Summary Discharge Rx Participant: Yes New Discharge Prescriptions: New Acetaminophen [Tylenol] 1 - 2 tab PO Q6H PRN #90 tab PRN Reason: Pain Rivaroxaban [Xarelto] 10 mg PO DAILY #30 tab Cephalexin [Keflex] 500 mg PO Q8HR #15 cap Tobramycin 0.3% Ophth Soln [Tobrex 0.3% Ophth Soln] 1 drops RIGHT EYE Q8H 5 Days #10 ml predniSONE 10 mg PO DAILY #30 tab Continue Carbidopa-Levodopa 25-100 mg [Sinemet 25-100 mg] 1 tab PO TID Artificial Tears-Hypromellose [Artificial Tear Drops] 1 drops RIGHT EYE Q4H metFORMIN HCL [Glucophage] 1,000 mg PO BID Acetaminophen Tab [Tylenol] 650 mg PO BID PRN PRN Reason: Pain Cyanocobalamin (Vitamin B-12) [Vitamin B-12] 1,000 mcg PO HS Cholecalciferol [Vitamin D3] 4,000 unit PO DAILY Pravastatin Sodium [Pravachol] 20 mg PO HS Insulin Detemir [Levemir] 20 unit SQ HS Folic Acid 0.4 mg PO HS Clotrimazole Cream [Lotrimin Cream] 1 applic TOPICAL HS Aspirin [Adult Low Dose Aspirin EC] 81 mg PO HS Discontinued predniSONE 20 mg PO HS Lisinopril [Prinivil] 10 mg PO DAILY Discharge Medication List Acetaminophen Tab [Tylenol] 650 mg PO BID PRN 09/04/17 [History] Artificial Tears-Hypromellose [Artificial Tear Drops] 1 drops RIGHT EYE Q4H [History] Aspirin [Adult Low Dose Aspirin EC] 81 mg PO HS 09/04/17 [History] Carbidopa-Levodopa 25-100 mg [Sinemet 25-100 mg] 1 tab PO TID 09/04/17 [History] Cholecalciferol [Vitamin D3] 4,000 unit PO DAILY 09/04/17 [History] Clotrimazole Cream [Lotrimin Cream] 1 applic TOPICAL HS 09/04/17 [History] Cyanocobalamin (Vitamin B-12) [Vitamin B-12] 1,000 mcg PO HS 09/04/17 [History] Folic Acid 0.4 mg PO HS 09/04/17 [History] Insulin Detemir [Levemir] 20 unit SQ HS 09/04/17 [History] Pravastatin Sodium [Pravachol] 20 mg PO HS 09/04/17 [History] metFORMIN HCL [Glucophage] 1,000 mg PO BID 09/04/17 [History] Acetaminophen [Tylenol] 1 - 2 tab PO Q6H PRN #90 tab 09/07/17 [Rx] Rivaroxaban [Xarelto] 10 mg PO DAILY #30 tab 09/07/17 [Rx] Cephalexin [Keflex] 500 mg PO Q8HR #15 cap 09/09/17 [Rx] Tobramycin 0.3% Ophth Soln [Tobrex 0.3% Ophth Soln] 1 drops RIGHT EYE Q8H 5 Days #10 ml 09/09/17 [Rx] predniSONE 10 mg PO DAILY #30 tab 09/09/17 [Rx] Follow up Appointment(s)/Referral(s): Mohamud Roberts MD [Primary Care Provider] - 1-2 days Mike Brambila DO [Doctor of Osteopathic Medicine] - 09/17/17 10:30 am Activity/Diet/Wound Care/Special Instructions: 50% weightbearing to the right lower extremity with a walker. Daily dressing changes to right hip. Nekoma may be removed in 10 days. Please call [facility] with any questions or concerns, . Discharge Disposition: TRANSFER TO SNF/ECF
[2017-09-10] MEDS: ACETAMINOPHEN TAB 325 MG TAB PO PRN ×2 (10:10→15:48)
[2017-09-10 11:26] LABS: Glucose,Whole Blood 261 mg/dL (75-99)
[2017-09-10 11:32] LABS: Basophils % (A) 0 %; Eosinophils % (A) 0 %; HCT 22.9 % (39.0-53.0); HGB 7.4 gm/dL (13.0-17.5); Lymphocytes # (A) 1.5 k/uL (1.0-4.8); Lymphocytes % (A) 11 %; MCH 30.3 pg (25.0-35.0); MCHC 32.3 g/dL (31.0-37.0); MCV 93.8 fL (80.0-100.0); Mean Platelet Volume 6.7; Monocytes # (A) 0.9 k/uL (0-1.0); Monocytes % (A) 6 %; Neutrophils # (A) 11.9 k/uL (1.3-7.7); Neutrophils % (A) 83 %; Platelet Count 519 k/uL (150-450); RBC 2.44 m/uL (4.30-5.90); RDW 13.6 % (11.5-15.5); WBC 14.4 k/uL (3.8-10.6)
--- NOTE | 2017-09-10 12:30 | P.PN ---
Subjective Progress Note Date: 09/10/17 Progress note being dictated for Dr. Waddell. Interval history: This is a 77-year-old admitted for right hip fracture will undergo surgical intervention tomorrow. Patient does have dementia and evidences medicine hypertension patient lisinopril will be held as I'm expecting perioperative hypotension. Patient's metformin will be held as well will continue sliding scale insulin Review of systems unable to obtain 09/06/2017 just returning from surgery, tolerated procedure well. Pain currently controlled. Family at bedside. 09/07/2017 no events overnight.T-max 99.8, maintaining O2 sats of 96% on room air. 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 Evaluated by Dr. Medel, ophthalmology, recommendations noted. Vital signs stable. Passing flatus, no bowel movement. Magnesium being supplemented. No family currently at bedside. PT at bedside performing bed exercises. Appears comfortable. 09/08/2017 No overnight events. Patient has Proteus mirabilis from the eye culture patient was started on tobramycin eyedrops, I do not see any conjunctivitis at this time but from that was the patient appears like patient has right periorbital cellulitis and patient is on IV cefazolin as well which will be continued 09/10/2079 Patient has crackles on lung exam because of which are I obtain the chest x-ray which showed atelectasis. I did do the medication reconciliation just in case the patient is being discharged tomorrow or today patient has elevated blood sugars because of which I'm increasing the Lantus to 40 units unsure why patient is on prednisone at nighttime that will be tapered down. 09/10/17 no overnight events. Elevated blood sugars in the mid 200s. Afebrile. Awaiting discharge to subacute rehab. Objective - Vital Signs Vital signs: Vital Signs Temp 97.9 F 09/09/17 19:20 Pulse 98 09/09/17 20:25 Resp 16 09/10/17 00:30 BP 143/77 09/09/17 19:20 Pulse Ox 95 09/09/17 19:20 Intake & Output 09/09/17 09/10/17 09/10/17 18:59 06:59 18:59 Intake Total 362 950 Output Total 1999 1050 500 Balance -1638 -100 -500 Intake: Oral 362 950 Output: Urine 1999 1050 500 Uretheral (Marsh) 750 500 Other: Voiding Method Indwelling Catheter Indwelling Catheter Indwelling Catheter # Bowel Movements 1 1 - Exam GENERAL: The patient is sitting up in bed, alert and unable to assess as patient is nonverbal, not in any acute distress. Well developed, well nourished. HEENT: Pupils are round, right-sided pyptosis-like with reddened conjunctiva, Normocephalic, atraumatic. No pharyngeal erythema. No thyromegaly. CARDIOVASCULAR: S1 and S2 present. No murmurs, rubs, or gallops. PULMONARY: Chest is clear to auscultation, no wheezing or crackles. ABDOMEN: Soft, nontender, nondistended, normoactive bowel sounds. No palpable organomegaly. MUSCULOSKELETAL: Deferred to orthopedic surgery EXTREMITIES: No cyanosis, clubbing, or pedal edema. NEUROLOGICAL: Gross neurological examination did not reveal any focal deficits. SKIN: No rashes. - Labs CBC & Chem 7: 09/10/17 10:39 09/09/17 06:43 Labs: Abnormal Lab Results - Last 24 Hours (Table) 09/09/17 09/09/17 09/10/17 Range/Units 16:44 22:04 06:48 WBC (3.8-10.6) k/uL RBC (4.30-5.90) m/uL Hgb (13.0-17.5) gm/dL Hct (39.0-53.0) % Plt Count (150-450) k/uL Neutrophils # (1.3-7.7) k/uL POC Glucose (mg/dL) 306 H 319 H 246 H (75-99) mg/dL 09/10/17 09/10/17 Range/Units 10:39 11:23 WBC 14.4 H (3.8-10.6) k/uL RBC 2.44 L (4.30-5.90) m/uL Hgb 7.4 L (13.0-17.5) gm/dL Hct 22.9 L (39.0-53.0) % Plt Count 519 H (150-450) k/uL Neutrophils # 11.9 H (1.3-7.7) k/uL POC Glucose (mg/dL) 261 H (75-99) mg/dL Microbiology - Last 24 Hours (Table) 09/05/17 00:48 Blood Culture - Preliminary Blood No Growth after 120 hours 09/07/17 20:54 Blood Culture - Preliminary Blood No Growth after 48 hours 09/07/17 19:52 Blood Culture - Preliminary Blood No Growth after 48 hours Assessment and Plan Assessment: -Right hip fracture, status post close reduction and intramedullary hip screw fixation of right hip -Hypertension hold off lisinopril because of above-mentioned reasons -History of dementia. 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 -Eye culture positive with Proteus Mirabellis, possible periorbital cellulitis Plan: Continue on current medication regime ,monitoring and symptomatic treatment. Increase Levemir to 40 units daily at bedtime. Follow closely with ophthalmology. Pain management and DVT prophylaxis as per primary. Discharge planning in progress for subacute rehab. The impression and plan of care has been dictated as directed. : I performed a history and examination of this patient, discussed the same with the dictator. I agree with the dictator's note ,documented as a scribe. Any additional findings or plans will be noted.
[2017-09-10] MEDS ORDERED: INSULIN DETEMIR 100 UNIT/ML 10 ML VIAL SQ SCH (21:00)
== END 2017-09-10 16:00 | DRG 481 ==
LOC: EC 14:51 → 3SUR 18:13
PROVIDERS: ADMIT Orthopaedic Surgery; ATTEND Orthopaedic Surgery
PROC: 0QS636Z Reposition Right Upper Femur with Intramedullary Internal Fixation Device, Percutaneous Approach (ICD-10-PCS; principal; 2017-09-06 10:30)
DX: S72.141A Displaced intertrochanteric fracture of right femur, initial encounter for closed fracture (principal); D62 Acute posthemorrhagic anemia; J98.11 Atelectasis; L03.213 Periorbital cellulitis; E87.1 Hypo-osmolality and hyponatremia; E11.65 Type 2 diabetes mellitus with hyperglycemia; E83.42 Hypomagnesemia; E87.5 Hyperkalemia; F02.80 Dementia in other diseases classified elsewhere, unspecified severity, without behavioral disturbance, psychotic disturbance, mood disturbance, and anxiety; G20 Parkinson's disease; H05.20 Unspecified exophthalmos; H18.411 Arcus senilis, right eye; H54.7 Unspecified visual loss; I10 Essential (primary) hypertension; J32.0 Chronic maxillary sinusitis; J32.2 Chronic ethmoidal sinusitis; J34.2 Deviated nasal septum; B96.4 Proteus (mirabilis) (morganii) as the cause of diseases classified elsewhere; H50.9 Unspecified strabismus; E11.36 Type 2 diabetes mellitus with diabetic cataract; E78.00 Pure hypercholesterolemia, unspecified; H44.9 Unspecified disorder of globe; Z79.899 Other long term (current) drug therapy; Z79.4 Long term (current) use of insulin; Z79.82 Long term (current) use of aspirin; Z79.52 Long term (current) use of systemic steroids; W01.0XXA Fall on same level from slipping, tripping and stumbling without subsequent striking against object, initial encounter; Y92.099 Unspecified place in other non-institutional residence as the place of occurrence of the external cause
CPT/HCPCS: 36415; 51702; 70488; 71045; 73501; 73502; 80048; 80053; 80074; 81003; 82550; 82553; 83036; 83735; 84100; 84484; 85025; 85610; 85730; 86850; 86900; 86901; 87040; 87070; 87077; 87086; 87186; 87205; 93005; 94760; 96361; 96374; 99285